=== PATIENT | male | born 1955 | race Caucasian/White ===

== ENCOUNTER → 2018-02-27 13:22 | Outpatient (CLI) | payer BC, SELFPAY ==
--- NOTE | 2018-02-27 13:30 | CT_ITS ---
EXAM: CT LUNG LOW DOSE WO CONTRAST COMPARISON: None HISTORY: 62-year-old male with 54 pack-year smoking history asymptomatic ORDERING PHYSICIAN: Marcelino Ortega MD PATIENT AGE: 62 years TECHNIQUE: The exam was performed on a GE Light Speed [address] scanner using 2.90 mGy CTDI. A low dose helical CT CHEST was performed on a multi-detector scanner. All CT scans at the facility use one or more dose reduction, viz: automated exposure control; ma/kV adjustment per patient size (including targeted exams where dose is matched to indication; i.e. head); or iterative reconstruction technique. The LDCT was performed in a facility that meets the criteria for the screening program. Data regarding this exam was submitted to ACR which is an approved registry. The order for this exam indicates that it came as a result of a lung cancer screening counseling shard decision-making visit that included all the elements required of such a visit including smoking cessation. The radiologist interpreting this exam meets the CMS criteria for the LDCT lung cancer screening program. The exam is reported using the Lung-RADS classification scale and reported to the ACR registry. NOTE: This study was performed for the specific purposes of lung cancer screening and is not an alternative to diagnostic chest CT. RADIATION DOSE: CTDI vol(CT dose Index-volume) = 2.90mG DLP (Dose Length Product) = 106.81 mGcm FINDINGS: Moderate centrilobular emphysematous changes are present with hyperinflation and bronchial thickening consistent with obstructive chronic bronchitis. Calcified granuloma right middle lobe. No suspicious nodules infiltrates or effusions. There are coronary artery calcifications. Scattered isodense lesions of the liver are present the largest at 2.6 cm consistent with hepatic cysts. IMPRESSION: 1. Lung RADS Category: 2, benign 2. Other findings: Centrilobular emphysema/COPD. Coronary artery calcifications suggesting coronary artery disease RECOMMENDATIONS: 12 month LDCT follow-up
== END ==
PROVIDERS: Family Provider Family Medicine; PCP Family Medicine; Visit Provider Family Medicine
DX: Z87.891 Personal history of nicotine dependence (principal); Z12.2 Encounter for screening for malignant neoplasm of respiratory organs

== ENCOUNTER → 2019-03-05 13:57 | Outpatient (CLI) | payer MEDICARE, SELFPAY ==
--- NOTE | 2019-03-05 14:06 | CT_ITS ---
CT lung screening EXAM: CT LUNG LOW DOSE WO CONTRAST HISTORY: 50 pack-year smoking history, asymptomatic for lung cancer ITS.REASON: H/O NICOTINE DEPENDENCE ORDERING PHYSICIAN: Marcelino Ortega MD PATIENT AGE: 63 years COMPARISON: None TECHNIQUE: The exam was performed on a GE Light Speed [address] scanner using 2.90 mGy CTDI. A low dose helical CT CHEST was performed on a multi-detector scanner. All CT scans at the facility use one or more dose reduction, viz: automated exposure control, ma/kV adjustment per patient size (including targeted exams where dose is matched to indication, i.e. head), or iterative reconstruction technique. The LDCT was performed in a facility that meets the criteria for the screening program. Data regarding this exam was submitted to ACR which is an approved registry. The order for this exam indicates that it came as a result of a lung cancer screening counseling shard decision-making visit that included all the elements required of such a visit including smoking cessation. The radiologist interpreting this exam meets the CMS criteria for the LDCT lung cancer screening program. The exam is reported using the Lung-RADS classification scale and reported to the ACR registry. NOTE: This study was performed for the specific purposes of lung cancer screening and is not an alternative to diagnostic chest CT. RADIATION DOSE: CTDI vol(CT dose Index-volume) = 2.90mG DLP (Dose Length Product) = 115.16 mGcm FINDINGS: Centrilobular emphysema. No suspicious nodules. Small nodes are present in the mediastinum. Calcified granuloma right middle lobe. There are coronary artery calcifications. Scattered hypodense areas are present in the liver may be due to cysts IMPRESSION: 1. Lung RADS Category: 2, benign 2. Other findings: Centrilobular emphysema, coronary artery disease RECOMMENDATIONS: 12 month LDCT follow-up
== END ==
PROVIDERS: PCP Family Medicine; Visit Provider Family Medicine
DX: Z12.2 Encounter for screening for malignant neoplasm of respiratory organs (principal); Z87.891 Personal history of nicotine dependence

== ENCOUNTER → 2020-09-06 15:03 | Outpatient (POV) | payer MEDICARE, OTHER, SELFPAY | PROVIDERS: Visit Provider Dermatology | DX: Z00.00 Encounter for general adult medical examination without abnormal findings (principal) ==

== ENCOUNTER → 2020-09-20 13:58 | Outpatient (POV) | payer MEDICARE, OTHER, SELFPAY | PROVIDERS: Visit Provider Dermatology | DX: Z00.00 Encounter for general adult medical examination without abnormal findings (principal) ==

== ENCOUNTER → 2021-09-12 12:06 | Outpatient (CLI) | payer MEDICARE, OTHER, SELFPAY | PROVIDERS: Visit Provider Surgery | DX: Z01.812 Encounter for preprocedural laboratory examination (principal); Z11.52 Encounter for screening for COVID-19; Z12.11 Encounter for screening for malignant neoplasm of colon | CPT/HCPCS: C9803; U0003; U0005 ==

== ENCOUNTER 2021-09-14 09:55 | Day surgery (SDC) | payer MEDICARE, OTHER, SELFPAY ==
[2021-09-11 12:44] VITALS: BMI 27.1
[2021-09-14] VITALS (9 sets, daily range): BP systolic 88–154; BP diastolic 58–84; PULSE 57–67; RESP 18; TEMP 36.1–36.3; O2SAT 93–97
--- NOTE | 2021-09-14 11:05 | HMH.SCOPE ---
- Procedure: Date: 09/14/21 Patient Date of :: 1955 Procedure Performed:: Colonoscopy with polypectomy Indications:: History of polyps. Colonoscopy in March [address] Martinez revealed the followin polyps in the ascending colon 4 polyps in the transverse colon 3 polyps in the descending colon 1 polyp in the sigmoid colon Left-sided diverticulosis Grade 1 internal hemorrhoids Performing Provider:: Fili Salguero MD Referring Provider:: . Sedation:: Monitored anesthesia care Procedure:: After informed consent was obtained the patient was taken to the endoscopy suite. Sedation ensued after the patient was transferred to the left lateral decubitus position. Pulse, blood pressure, and oxygen saturation were monitored throughout the procedure. Digital rectal exam revealed no significant abnormality. The colonoscope was placed in position. The entire colon was evaluated. The colonoscope was carefully removed and the patient was transferred to recovery in stable condition. Please see findings and specimens below for detail. Findings:: Bowel preparation moderate Profound spasticity/lack of relaxation Moderate tortuosity throughout with severe sigmoid tortuosity Scattered diverticulosis (mostly left-sided) Multiple complex polyps (see specimens) Specimens:: Lobulated cecal polyp (cold snare) Lobulated proximal right colon polyp (cold snare) Right colon polyp (cold snare) Complex/lobulated hepatic flexure polyps x5 (cold snare) Recommendations:: Timing of repeat colonoscopy is pending pathology but will likely be between 1-2 years secondary to history of multiple complex polyps noted on colonoscopy in 2019 and additional multiple complex polyps noted on this evaluation. Short-term repeat evaluation also warranted secondary to limitations in visualization due to spasticity/lack of relaxation/tortuosity/moderate bowel prep. Complications:: No immediate. Flat/upright abdominal films pending secondary to need for excision of multiple large complex polyps and overall difficulty in maneuvering secondary to spasticity/lack of relaxation/tortuosity. Estimated blood obtained (mL): 1
--- NOTE | 2021-09-14 13:19 | P.PN_ITS ---
[facility] Anesthesia Checklist - Patient Identification Patient Identification: Arm Band, Verbal (Name & ) - Structural Data Admitted From: Home Planned Operative Procedure/s: Colonoscopy Consent for Planned Operative Procedure(s) Verified: Yes Verified Documents: Surgical Consent - NPO Status Verified Time NPO: 00:00 - Additional verifications Anesthesia Reactions: No Hx Blood Transfusions: No Blood Transfusion Reaction: No - Cardiovascular Assessment Heart Sounds: S1 & S2 - Airway Assessment C-Spine Mobility Assessed: Yes TMJ Mobility Assessed: Yes Dentition: Dentures-good fit - Neurological Assessment Level of Consciousness: Awake, Alert, Appropriate - Anesthesia Plan Anesthesia Risk discussed: Yes ASA Class: II Anesthesia Type: General [facility] History I have reviewed the patient's past medical history: Yes Medical History: Reports:: Hyperlipidemia, Lung Disease (copd) Denies:: Cancer, Diabetes Mellitus Type 1, Diabetes Mellitus Type 2, Internal Pacemaker, MRSA, Seizures *Have you ever received a pneumonia vaccine?: Yes *Have you received a flu vaccine this season?: Yes Other Medical History: Denies: Blood Transfusion Reaction Anesthesia experience/problems:: no issues Laterality Cases: Bilateral: Tonsillectomy Other Surgeries: No: Pacemaker Amputation: No Fractures: No - *Social History Last grade of school completed: High school graduate Smoking Status: Current every day smoker Tobacco Type: cigarettes # Packs/Day (cigarettes): 1 Alcohol Intake: current Alcohol Intake Frequency:: a few times a month Substance Use Type: marijuana *Occupational Status:: retired *Travel in the last 8 weeks: None Family Hx:: No significant family history
--- NOTE | 2021-09-14 14:15 | XR_ITS ---
PROCEDURE: XR ACUTE ABDOMEN SERIES CLINICAL INDICATION: post-colonoscopy pain COMPARISON: CT LUNGSCREEN CT lung screening from 03/05/2019 FINDINGS: Radiograph of the chest demonstrates no definite pneumothorax, although it is not clear whether this radiograph was obtained upright. If it is a supine radiograph than pneumothorax cannot be entirely excluded. There is no pleural fluid and no large pulmonary masses. No pulmonary edema. Extrathoracic visualized soft tissues appear unremarkable. Abdominal radiograph upright demonstrates a tiny linear lucency in the right upper quadrant, which could represent a tiny amount of free intraperitoneal air. There is a right upper quadrant clips presumably post cholecystectomy. There is osseous degenerative change. 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 No dilated bowel loops are visualized. IMPRESSION: 1. No large pneumothorax, although it is it is not clear whether upright chest radiograph was obtained. 2. Tiny linear lucency in right upper quadrant on upright abdominal radiograph, which could represent a tiny amount of free intraperitoneal air. Dictated by: Harmony Blount MD 09/14/2021 14:50 Harmony Blount MD in [facility] 09/14/2021 14:50
--- NOTE | 2021-09-14 14:20 | SUR.PHASEII ---
Pt to radiology
--- NOTE | 2021-09-14 14:39 | SUR.PHASEII ---
return from radiology.
--- NOTE | 2021-09-14 14:56 | SUR.PHASEII ---
Xray results back, impression: possibility in RUQ for a tiny amount of free air. Dr Salguero notified. Waiting for response.
--- NOTE | 2021-09-14 14:59 | SUR.PHASEII ---
Dr. Salguero says send pt home and have pt return tomorrow for another flat and upright. instructed pt of this and he verbalized understanding.
--- NOTE | 2021-09-14 15:05 | SUR.PHASEII ---
repeated discharge instructions and to come to ER if develops abdominal pain or vominting blood, verbalized understanding.
== END 2021-09-14 15:05 | disposition home or self-care (01) ==
LOC: OUTP 09:57
PROVIDERS: PCP Family Medicine; Visit Provider Surgery
PROC: 0DJD8ZZ Inspection of Lower Intestinal Tract, Via Natural or Artificial Opening Endoscopic (ICD-10-PCS; principal; 2021-09-14 11:00)
DX: Z12.11 Encounter for screening for malignant neoplasm of colon (principal); K63.5 Polyp of colon; K58.9 Irritable bowel syndrome, unspecified; K56.2 Volvulus; K57.32 Diverticulitis of large intestine without perforation or abscess without bleeding; Z86.010 Personal history of colon polyps; E78.5 Hyperlipidemia, unspecified; J44.9 Chronic obstructive pulmonary disease, unspecified; F12.90 Cannabis use, unspecified, uncomplicated; Z72.0 Tobacco use
CPT/HCPCS: 45385; 74021; 88305; J2704

== ENCOUNTER → 2021-09-15 13:09 | Outpatient (CLI) | payer MEDICARE, OTHER, SELFPAY ==
--- NOTE | 2021-09-15 13:17 | XR_ITS ---
PROCEDURE: XR ABDOMEN MIN 2V CLINICAL INDICATION: POST COLONOSCOPY COMPARISON: No exams were available for comparison FINDINGS: There is scattered gas and stool in the ascending colon, hepatic flexure and splenic flexure. Minimal small bowel gas seen in the left side of the abdomen. There is no evidence of free air. There are no abnormal soft tissue shadows. IMPRESSION: Mildly abnormal non-specific bowel gas pattern Dictated by: Dr. Nehemias Guerrero MD 09/15/2021 15:21 Dr. Nehemias Guerrero MD in [facility] 09/15/2021 15:21
== END ==
PROVIDERS: PCP Family Medicine; Visit Provider Surgery
DX: Z86.010 Personal history of colon polyps (principal)
CPT/HCPCS: 74019

== ENCOUNTER → 2022-02-12 13:11 | Outpatient (CLI) | payer MEDICARE, OTHER, SELFPAY ==
--- NOTE | 2022-02-12 13:21 | CT_ITS ---
FINAL REPORT CLINICAL HISTORY: SCREENING FOR LUNG CANCER, NICOTINE INDEPENDENCE smoker, 1ppd x 50 years, copd COMPARISON: March 05, 2019 FINDINGS: Low-Dose Chest CT CTDI vol (mGy): 2.90 DLP (mGy-cm): 108.64 Axial images were obtained from the lung apex to the mid abdomen by computed tomography. Low-dose protocol was utilized. FINDINGS: CHEST: There is no axillary adenopathy. There is no hilar or mediastinal adenopathy. There is several small mediastinal lymph nodes. The heart is proper size. There is no pericardial or pleural effusion. Limited images of the upper abdomen demonstrate multiple hepatic cysts. There are postoperative changes from cholecystectomy. Lung window images demonstrate moderate emphysema. There is mild scarring. There is a calcified granuloma in the right middle lobe. No new nodule or mass is identified. IMPRESSION: Lung RADS category 1. Recommend 12 month follow-up low-dose chest CT. Reviewed, Interpreted and Dictated by Sal Vines III, MD Transcribed by Nancy Gonzalez Authenticated by Sal Vines III, MD on 02/12/2022 02:59:27 PM [facility]
== END ==
PROVIDERS: PCP Family Medicine; Visit Provider Family Medicine
DX: Z87.891 Personal history of nicotine dependence (principal); Z12.2 Encounter for screening for malignant neoplasm of respiratory organs
CPT/HCPCS: 71271

== ENCOUNTER → 2022-08-28 08:55 | Outpatient (POV) | payer MEDICARE, OTHER, SELFPAY | PROVIDERS: Visit Provider Dermatology | DX: Z00.00 Encounter for general adult medical examination without abnormal findings (principal) ==

== ENCOUNTER → 2022-10-02 13:13 | Outpatient (POV) | payer MEDICARE, OTHER, SELFPAY | PROVIDERS: Visit Provider Dermatology | DX: Z00.00 Encounter for general adult medical examination without abnormal findings (principal) ==

== ENCOUNTER → 2023-08-23 07:22 | Outpatient (CLI) | payer MEDICARE, OTHER, SELFPAY ==
--- NOTE | 2023-08-23 07:29 | CT_ITS ---
FINAL REPORT CLINICAL HISTORY: H/O NICOTINE DEPENDENCE smoker,1.5 ppd x 54 years. copd COMPARISON: 02/12/2022 FINDINGS: Axial images were obtained from the lung apex to the mid abdomen by computed tomography. Low-dose protocol was utilized. CTDl vol(mGy): 2.90 DLP (mGy-cm): 108.90 FINDINGS: There is no axillary adenopathy. There is no hilar or mediastinal adenopathy. Multiple borderline sized lymph nodes are present. There are moderate to severe coronary artery calcifications. The heart size is normal. There is no pericardial or pleural effusion. Lung window images demonstrate no suspicious infiltrate or nodule. There is mild scarring. There is a calcified granuloma in the right midlung. Limited images of the upper abdomen demonstrate multiple, presumed, hepatic cysts. The patient is status postcholecystectomy. IMPRESSION: Lung RADS category 1. Recommend 12 month follow-up low-dose chest CT. Reviewed, Interpreted and Dictated by Sal Vines III, MD Transcribed by Dori Clark Authenticated and [facility]
== END ==
PROVIDERS: PCP Family Medicine; Visit Provider Family Medicine
DX: Z87.891 Personal history of nicotine dependence (principal); Z12.2 Encounter for screening for malignant neoplasm of respiratory organs
CPT/HCPCS: 71271

== ENCOUNTER 2024-08-21 07:14 | Outpatient (CLI) | payer MEDICARE, SELFPAY ==
--- NOTE | 2024-08-21 07:20 | CT_ITS ---
FINAL REPORT TECHNIQUE: Axial images were obtained from the lung apex to the mid abdomen by computed tomography. This study was performed with techniques to keep radiation doses as low as reasonably achievable (ALARA). Individualized dose reduction techniques using automated exposure control or adjustment of mA and/or kV according to the patient's size were employed. CLINICAL HISTORY: SCREENING, current smoker, 1ppd 55 years COMPARISON: 08/23/2023 FINDINGS: CHEST CT LOW DOSE CTDI vol (mGy): 2.90 DLP (mGy-cm): 111.77 There is no axillary adenopathy. There is no hilar or mediastinal adenopathy. There is moderate coronary artery calcification. The heart is normal in size. There is no pericardial or pleural effusion. There are advanced changes of centrilobular emphysema. No suspicious mass or nodule is identified. Limited images of the upper abdomen demonstrate a benign-appearing cyst in the liver measuring to 4.6 cm in diameter. The gallbladder is surgically absent. IMPRESSION: Advanced changes of centrilobular emphysema. Benign cyst in the liver. Lung RADS category 1S. Recommend 12 month follow-up low-dose chest CT. Reviewed, Interpreted and Dictated by Rad Blount MD Transcribed by Odilia Cordon Authenticated and [facility]
== END 2024-08-21 23:59 | disposition home or self-care (01) ==
LOC: RAD 07:16
PROVIDERS: PCP Family Medicine; Visit Provider Family Medicine
DX: Z87.891 Personal history of nicotine dependence (principal)
CPT/HCPCS: 71271

== ENCOUNTER 2024-11-20 15:41 | Observation (INO) | payer MEDICARE, SELFPAY ==
--- NOTE | 2024-11-20 15:50 | CT_ITS ---
FINAL REPORT TECHNIQUE: Thin-section axial CT with IV contrast supplemented with multi planar reconstruction under CT angiogram protocol was performed of the neck. This study was performed technique to keep radiation doses as low as reasonably achievable, (ALARA). NASCET criteria was utilized during interpretation. CLINICAL HISTORY: R sided UE and LE lexkness 12h, stroke alert COMPARISON: None FINDINGS: Aortic arch: Arch shows no significant narrowing. Great vessel origins are widely patent. Right carotid: No significant stenosis is seen at the cervical common or internal carotid artery. This is considered 0% stenosis by NASCET criteria. Left carotid: No significant stenosis is seen at the cervical common or internal carotid artery. A small amount of calcified plaque is noted in the left carotid bulb, however no significant stenosis is identified, consistent with 0% stenosis by NASCET criteria. Vertebrals: No significant stenosis is present. IMPRESSION: No evidence of significant stenosis or major branch occlusion. Reviewed, Interpreted and Dictated by Jewels Robert MD Transcribed by Nayely Godoy Authenticated and [facility]
--- NOTE | 2024-11-20 15:50 | CT_ITS ---
FINAL REPORT TECHNIQUE: Thin section axial images are obtained through the brain after intravenous contrast injection. Multiplanar reconstructions were obtained from the axial data. Exam was performed using dose reduction technique per the ALARA principal. CLINICAL HISTORY: R sided UE and LE lexkness 12h, stroke alert COMPARISON: None FINDINGS: The intracerebral portions of the carotid arteries are patent. The anterior and middle cerebral arteries are patent. The basilar artery is patent. The posterior cerebral arteries arise from the basilar artery. [place] is intact. There is no significant stenosis, aneurysm, or AVM. IMPRESSION: Unremarkable CT angiogram of the intracerebral vasculature. Reviewed, Interpreted and Dictated by Jewels Robert MD Transcribed by Nayely Godoy Authenticated and [facility]
--- NOTE | 2024-11-20 15:50 | XR_ITS ---
FINAL REPORT CLINICAL HISTORY: stroke like symptoms COMPARISON: None FINDINGS: A portable view of the chest was obtained. Cardiac and mediastinal silhouettes are within normal limits. There are mild increased interstitial markings bilaterally, likely chronic. There is no pleural effusion or pneumothorax. IMPRESSION: No acute process on this portable exam. Reviewed, Interpreted and Dictated by Jewels Robert MD Transcribed by Nayely Godoy Authenticated and [facility]
--- NOTE | 2024-11-20 15:50 | CT_ITS ---
FINAL REPORT TECHNIQUE: Thin section axial images were obtained from skull base to vertex without contrast. Coronal reconstruction images were obtained from the axial data. Exam was performed using dose reduction technique. CLINICAL HISTORY: R sided UE and LE weskness 12h, stroke alert COMPARISON: None FINDINGS: There is age-appropriate atrophy. There is no mass effect or midline shift. There is no intracranial hemorrhage. There is no hydrocephalus. Periventricular low density is likely related to changes of chronic small vessel ischemia. There is a chronic appearing left basal ganglia low-density that likely represents a possible chronic lacunar infarct. There is also a smaller low-density in the right caudate, that likely also represents a chronic lacunar infarct. The basilar cisterns are preserved. The posterior fossa is without acute abnormality. The soft tissues are without acute abnormality. There is mucoperiosteal thickening in the maxillary sinuses bilaterally, with frothy debris in the right maxillary sinus. No acute osseous abnormality is identified. IMPRESSION: No acute intracranial abnormality. Atrophy and changes suggesting chronic small vessel ischemia. There are small low densities in the right caudate and left basal ganglia that likely represent small chronic lacunar infarcts. Reviewed, Interpreted and Dictated by Jewels Robert MD Transcribed by Nayely Godoy Authenticated and [facility]
--- NOTE | 2024-11-20 15:52 | ECG_ITS ---
APPROVED REPORT Exam: Resting ECG HR:58 bpm ECG Measurements Heart Rate 58 AXES GA 162 P 46 QRSd 83 QRS 37 QT 423 T 35 QTc 419 Conclusion SINUS BRADYCARDIA MINIMAL ST DEPRESSION [0.025+ mV ST DEPRESSION] BORDERLINE ECG UNCONFIRMED REPORT Electronically signed by : KYA VINES, 11/22/2024 02:36:45
[2024-11-20 15:54] VITALS: BP 181/93; PULSE 59; RESP 20; TEMP 36.7; O2SAT 99; BMI 26.4
[2024-11-20] MEDS: SODIUM CHLORIDE 0.9% 10ML SYR (RAD ONLY) 10 ML IV (16:04)
[2024-11-20] MEDS: 0.9 % SODIUM CHLORIDE 50 ML VIAL IV (16:05)
[2024-11-20] MEDS: IOPAMIDOL-370 (76%);100ML BOTTLE 80 ML IV (16:05)
[2024-11-20 16:06] LABS: Basophils # 0.1 K/mm3 (0-0.2); Basophils % 1.1 % (0.1-2.0); Eosinophils # 0.1 K/mm3 (0.0-0.4); Eosinophils % 1.6 % (0.1-12.0); Hematocrit 49.3 % (42.0-52.0); Hemoglobin 16.7 g/dL (14.1-18.0); Lymphocytes # 1.8 K/mm3 (0.7-4.5); Lymphocytes % 32.3 % (10-50); Mean Corpuscular HGB Conc 33.9 g/dL (31.8-35.4); Mean Corpuscular Hemoglobin 30.8 pg (27.0-31.2); Mean Platelet Volume 10.2 fl (7.4-10.4); Monocytes # 0.4 K/mm3 (0.1-1.0); Monocytes % 7.2 % (1.7-9.3); Neutrophils # 3.3 K/mm3 (1.8-7.8); Neutrophils % 57.6 % (37.0-80.0); Platelet Count 198 K/mm3 (142-424); Red Blood Count 5.42 M/mm3 (4.60-6.20); Red Cell Distribution Width 12.4 % (11.5-17.5); White Blood Count 5.7 K/mm3 (4.8-10.8)
[2024-11-20 16:15] VITALS: BP 162/90; PULSE 60; O2SAT 98
[2024-11-20 16:17] LABS: Alanine Aminotransferase 22 U/L (12-78); Albumin Level 4.4 g/dl (3.5-5.0); Albumin/Globulin Ratio 1.6 (1.1-1.8); Alkaline Phosphatase 67 U/L (38-126); Aspartate Amino Transferase 28 U/L (17-59); Bilirubin,Total 0.9 mg/dl (0.2-1.3); Blood Urea Nitrogen 8 mg/dl (9-20); Calcium 9.7 mg/dl (8.4-10.2); Carbon Dioxide 26 mmol/L (22.0-30.0); Chloride 104 mmol/L (98-107); Cholesterol 229 mg/dl (140-200); Creatinine Clearance Estimated 80 mL/min (50-200); Estimated Glomerular Filt Rate 95 ml/min (>60); GFR (African American) 115 ML/MIN (>60); Globulin 2.8 g/dL (1.3-3.2); Glucose 102 mg/dl (74-100); HDL Cholesterol 46 mg/dl (40-60); Lipase 57 U/L (23-300); Sodium 138 mmol/L (136-145); Total Protein,Serum 7.2 g/dl (6.3-8.2); Triglycerides 131 mg/dl (30-150); VLDL Cholesterol 26 mg/dL (0-40)
--- NOTE | 2024-11-20 16:18 | HMH.EDGENADL ---
Discharge Plan Disposition Patient Disposition: Admitted Chief Complaint: Neuro Symptoms/Deficit Clinical Impressions Clinical Impression: Acute right-sided muscle weakness Discharge ED Provider: Tito Astorga General Adult HPI General Chief complaint: Neuro Symptoms/Deficit Stated complaint: poss. stroke Time Seen by Provider: 11/20/24 15:50 Mode of Arrival: Ambulatory Source of Information: Patient Limitations: No Limitations Description of Symptoms (Recalled from ER Triage Doc. by RN): pt to ed c/o stroke like symptoms. pt LKN: 2300 yesterday. reports he was playing dominos, became cold, started having left sided weakness and had a fall today. History of Present Illness HPI narrative: Please note that above description of symptoms, in this electronic medical record under categorization of recalled from ER triage doctor by RN are reflective of an initial nursing assessment, however, is not reflective of my full history and physical exam that was personally taken and clarified. Consequentially, this preceding description of symptoms, which may include the patient's categorized chief complaint in the EMR, do not reflect my personal clinical impression, and the ultimate description of history of present illness and patient stated complaints should be deferred to this section of the note. Unless stated otherwise or congruent with this section of the note, additional signs, symptoms, or incongruence should be interpreted as inaccurate with my clinical impression. Related Data Home Medications ?Medication ?Instructions ?Recorded ?Confirmed albuterol sulfate 90 mcg/actuation 2 puffs IH DAILY COPD 03/17/19 09/20/21 aerosol inhaler fluoxetine 90 mg capsule,delayed 90 mg PO DAILY Depression 03/17/19 09/20/21 release fluticasone propionate 220 12 gm IH DAILY COPD 03/17/19 09/20/21 mcg/actuation HFA aerosol inhaler atorvastatin 10 mg tablet 10 mg PO HS Cholesterol 09/11/21 09/20/21 Allergies Allergy/AdvReac Type Severity Reaction Status Date / Time Penicillins Allergy Verified 09/20/21 14:58 [facility] Disclaimer: The information contained in this section may have been updated after the patient was seen, as this information can be updated by other users. Social History Smoking Status: Current every day smoker tobacco type: cigarettes packs per day: 1 alcohol intake: current alcohol intake frequency: a few times a month substance use type: marijuana current occupational status: retired Travel in the last 8 weeks: None caffeine: Yes Have you lived/traveled outside [place] in past 30 days?: No Contact w/someone who lives/traveled outside [place] past 30 days?: No Exposure to someone with infectious disease in past 14 days?: No Do you have a fever (greater than 100.4 F or 38 C)?: No Have you tested positive for COVID-19: No Exposed to someone with COVID-19 in past 14 days?: No Do you have a sore throat?: No Do you have a cough?: No Do you have any weakness?: No Do you have any diarrhea?: No Are you experiencing any unusual bleeding?: No Do you have any muscle aches/pain?: No Do you have any abdominal pain?: No Are you experiencing loss of taste or smell?: No Other Medical History Have you received the Flu Vaccine for this season: Yes Have you received the Pneumonia Vaccine: Yes ROS Obtained: Yes All systems reviewed & no additional complaints except as documented Physical Exam General General appearance: alert and in no apparent distress Head Head exam: atraumatic and normocephalic Eye Eye exam: Present normal appearance, PERRL and EOMI Neck Neck exam: Present normal inspection, full ROM and trachea midline Respiratory Respiratory exam: Present normal lung sounds bilaterally; Absent respiratory distress, wheezes, stridor, accessory muscle use or prolonged expiratory phase Cardiovascular Cardiovascular exam: Present regular rate, normal rhythm and other (Pulses equal symmetric in upper and lower extremities) Abdominal Exam Abdominal exam: Present soft; Absent distention, tenderness or pulsatile mass Extremities Exam Extremities exam: Absent edema Neurological Exam Neurological exam: Present alert, oriented X3, CN II-XII intact and motor sensory deficit (Weakness and after right upper and right lower extremity with 4 out of 5 strength. Dysmetria right upper extremity. NIHSS 3) Skin Skin exam: Present warm and dry; Absent diaphoresis or erythema Medical Decision Making Medical Records Medical records reviewed: Yes I reviewed the patient's medical records. Screening: Per USPSTF and CDC recommendations, given the prevalence of disease in our region, it is our hospital?s policy to screen for HIV and viral Hepatitis for all patients aged 18 and over and those with ongoing risk factors. Coleman Inquiry Pt receiving controlled substance: No Coleman was queried for this patient: No Vital Signs: 11/20/24 15:54 11/20/24 16:15 Temperature 98.1 F Temperature Source Oral Pulse Rate 60 Pulse Rate [Left Radial] 59 L Respiratory Rate 20 Blood Pressure 162/90 H Blood Pressure [Right Arm] 181/93 H Blood Pressure Mean 114 Blood Pressure Mean [Right Arm] 122 02 Sat by Pulse Oximetry 99 98 Oxygen Delivery Method Room Air Room Air Lab Data Lab Results 11/20/24 16:00: WBC 5.7, RBC 5.42, Hgb 16.7, Hct 49.3, MCV 91.0, MCH 30.8, MCHC 33.9, RDW 12.4, Plt Count 198, MPV 10.2, Neut % (Auto) 57.6, Lymph % (Auto) 32.3, Jack % (Auto) 7.2, Eos % (Auto) 1.6, Baso % (Auto) 1.1, Neut # (Auto) 3.3, Lymph # (Auto) 1.8, Jack # (Auto) 0.4, Eos # (Auto) 0.1, Baso # (Auto) 0.1, Sodium 138, Potassium 7.5 H*, Chloride 104, Carbon Dioxide 26, Anion Gap 15.5 H, BUN 8 L, Creatinine 0.80, Estimated Creat Clear 80, Estimated GFR 95, Est GFR ( Amer) 115, Glucose 102 H, Hemoglobin A1c 5.2, Calcium 9.7, Total Bilirubin 0.9, AST 28, ALT 22, Alkaline Phosphatase 67, Troponin I < 0.01, NT-Pro-B Natriuret Pep 112, Total Protein 7.2, Albumin 4.4, Globulin 2.8, Albumin/Globulin Ratio 1.6, Triglycerides 131, Cholesterol 229 H, LDL Cholesterol Direct 147.99 H, VLDL Cholesterol 26, HDL Cholesterol 46, Cholesterol/HDL Ratio 5.0 H, Lipase 57 11/20/24 16:30: Potassium 4.1 D 11/20/24 16:00 11/20/24 16:30 Orders (Tests/Meds): ED MEDICATIONS Generic Name Dose Route Start Last Admin Trade Name Freq PRN Reason Stop Dose Admin Calcium Gluconate/Sodium Chloride 2 gm in 100 mls @ 50 mls/hr 11/20/24 16:29 11/20/24 17:25 Calcium Gluconate 2,000mg/100ml Nacl Premix IV 11/20/24 18:28 Not Given ONCE ONE Discontinued Medications Generic Name Dose Route Start Last Admin Trade Name Freq PRN Reason Stop Dose Admin Aspirin 324 mg 11/20/24 15:50 11/20/24 16:30 Aspirin 81mg Chewable Tablet PO 11/20/24 15:51 324 mg ONCE ONE Administration Dextrose 50 ml 11/20/24 16:29 11/20/24 17:25 Dextrose 50% 50ml Syringe (Crash Cart) IVP 11/20/24 16:30 Not Given ONCE ONE Lactated Ringer's 1,000 mls @ 999 mls/hr 11/20/24 15:50 11/20/24 16:30 Lactated Ringer's 1000 Ml Bag IV 11/20/24 16:50 999 mls/hr .Q1H1M ONE Administration Insulin Human Regular 10 unit 11/20/24 16:29 11/20/24 17:25 Insulin Human Regular 100 Units/Ml 10ml Vial IV 11/20/24 16:30 Not Given ONCE ONE Iopamidol 80 ml 11/20/24 16:03 11/20/24 16:05 Iopamidol-370 (76%);100ml Bottle IV 11/20/24 16:04 80 ml ONCE ONE Administration Lisinopril 5 mg 11/20/24 17:17 Lisinopril 5mg Tablet PO 11/20/24 17:18 ONCE ONE Sodium Chloride 10 ml 11/20/24 16:03 11/20/24 16:04 Sodium Chloride 0.9% 10ml Syr (Rad Only) IV 11/20/24 16:04 10 ml ONCE ONE Administration Sodium Chloride 50 ml 11/20/24 16:03 11/20/24 16:05 0.9 % Sodium Chloride 50 Ml Vial IV 11/20/24 16:04 50 ml ONCE ONE Administration Sodium Zirconium Cyclosilicate 10 gm 11/20/24 16:29 11/20/24 17:25 Lokelma 5gm Packet PO 11/20/24 16:30 Not Given ONCE ONE ORDERS Category Date Time Status CT angio head Stat Cat Scan 11/20/24 15:[address] angio neck Stat Cat Scan 11/20/24 15:[address] head/brain wo con Stat Cat Scan 11/20/24 15:50 Completed CXR --portable [XR chest portable] Stat Exams 11/20/24 15:50 Completed CBC w/Auto Diff [Complete Blood Count Auto Diff] Stat Lab 11/20/24 16:00 Completed CMP [Comprehensive Metabolic Panel] Stat Lab 11/20/24 16:00 Completed Hemoglobin A1C Stat Lab 11/20/24 16:00 Completed Lipase Stat Lab 11/20/24 16:00 Completed Lipid Panel Stat Lab 11/20/24 16:00 Completed NT Pro Brain Natriuretic Pep. Stat Lab 11/20/24 16:00 Completed Potassium Stat Lab 11/20/24 16:30 Completed Trop I [Troponin I] Stat Lab 11/20/24 16:00 Completed Troponin I Q3H Lab 11/20/24 19:00 Ordered Troponin I Q3H Lab 11/20/24 22:00 Ordered CA echo doppler complete AM Y 11/21/24 07:00 Ordered Medical Decision Narrative: 69-year-old male history of COPD and tobacco use disorder still currently smoking 1.5 packs/day and has been doing so for nearly 60 years presenting with right-sided weakness. Patient states that he has intermittently had weakness on the right side over the past couple of months, but last night, 1/2 in the PM noticed that his right upper extremity was heavy and weak as well as his right lower extremity. States that he was having difficulty picking his right lower extremity off the floor when he was walking and has fallen toward his right lower extremity a couple of times. Has not hit his head. No anticoagulation. No chest pain, nausea, vomiting, left-sided deficits, speech deficits, vision changes, or any other concerns. Never had anything like this in the past. History was obtained via conversation with patient. On arrival, patient hemodynamically stable, alert, oriented x4, appropriate, GCS 15, moving all extremities spontaneously, pupils equal and reactive to light. Full physical exam performed and significant for Weakness and after right upper and right lower extremity with 4 out of 5 strength. Dysmetria right upper extremity. NIHSS 3. Cardiopulmonary exam normal. Cranial nerves intact and symmetric. Differential includes hemorrhagic CVA, embolic CVA, critical cervical or intracranial stenosis, intracranial mass, TIA, among others. Patient placed on continuous cardiac monitoring and continuous pulse ox with initial blood pressure 191/93, heart rate 59, saturation 99% on room air. Independent interpretation of EKG shows sinus bradycardia 58 bpm. AL 162, QRS 83, QTc 419. No acute ischemic change. Normal axis. Patient was given full dose aspirin 324 mg for symptomatic management and correction of underlying abnormalities. Workup independently interpreted and significant for no acute intracranial hemorrhage on CT head. Labs independently interpreted with nonactionable chemistry other than significantly elevated potassium greater than 7. I feel this is likely a lab error given normal kidney function and otherwise normal labs. Insulin, dextrose, calcium gluconate were ordered, but held prior to repeat potassium being drawn given no clinical symptoms and no EKG changes. Repeat potassium 4.1. Hyperkalemic protocol was canceled. Nonactionable lipid panel. CBC normal. On independent interpretation of angiograms, no acute intracranial hemorrhage. Patient does have chronic findings in the deep matter of his brain. See radiology read for full review of final results. Heart score 3. On reevaluation, patient still symptomatic with NIHSS 3. I feel this is likely sales development representative of TIA versus basal ganglia stroke. Patient's primary care provider team was contacted and case was discussed for admission. Recommended lisinopril for pressures and admission. Formal echo was also ordered for the morning. MR head was also ordered. Given patient presentation, workup, history, this most likely represents strokelike symptoms. Because patient high risk for clinical decompensation, deemed appropriate for inpatient admission. Results were relayed to patient who voiced understanding and patient was agreeable to inpatient admission and management. Patient was admitted to the hospital for further definitive management. Employee Development Manager disclaimer Much of this encounter note is an electronic nail polish brush machine feeder spoken language to printed text. Electronic nail polish brush machine feeder of the spoken language may permit errors. Although I have reviewed the note, some errors may still exist. Critical Care Critical Care Time Critical Care Time: No
[2024-11-20 16:20] LABS: Anion Gap 15.5 mEq/L (5-15)
[2024-11-20 16:26] LABS: Potassium 7.5 mmoL/L (3.5-5.1)
[2024-11-20 16:28] LABS: Direct LDL Cholesterol 147.99 mg/dL (100-129)
[2024-11-20] MEDS: ASPIRIN 81MG CHEWABLE TABLET 324 MG PO (16:30)
[2024-11-20] MEDS: LACTATED RINGERS 1000ML 1,000 ML 999 ML IV (16:30)
[2024-11-20 16:37] LABS: NT Pro Brain Natriuretic Pep. 112 pg/mL (0-125)
[2024-11-20 16:46] LABS: Troponin I < 0.01 ng/ml (0.00-0.034)
[2024-11-20 16:51] LABS: Potassium 4.1 mmoL/L (3.5-5.1)
--- NOTE | 2024-11-20 17:04 | PC.NURSE ---
paged Dr. Duggan, on-call for Dr. Ortega
--- NOTE | 2024-11-20 17:19 | PC.NURSE ---
Dr. Astorga s/w Dr. Duggan, agrees to admit. night supervisor notified for admission
[2024-11-20 17:20] LABS: Hemoglobin A1C 5.2 % (4.0-6.0)
--- NOTE | 2024-11-20 17:29 | MR_ITS ---
PROCEDURE INFORMATION: Exam: MR Head Without Contrast Exam date and time: 11/20/2024 5:49 PM Age: 69 years old Clinical indication: Stroke-like symptoms; RT upper extremity and RT lower extremity weakness; Additional info: R sided weakness [id number] TECHNIQUE: Imaging protocol: Magnetic resonance imaging of the head without contrast. COMPARISON: CT ANGIO HEAD 11/20/2024 4:02 PM FINDINGS: Major vascular flow voids at the skull base are preserved. No extra-axial fluid collection. No obstructive hydrocephalus. Mild age-related volume loss. Diffusion restriction at the left basal ganglia extending to the left osorio radiata measuring up to 1.2 cm. Associated T2 prolongation. Moderate paranasal sinus disease. Small bilateral mastoid effusions. IMPRESSION: 1.2 cm acute/early subacute infarct at the left basal ganglia extending to the osorio radiata. THIS REPORT CONTAINS FINDINGS THAT MAY BE CRITICAL TO PATIENT CARE. The findings were verbally communicated via telephone conference with BORA Simmons at 6:11 PM EST on 11/20/2024. The findings were acknowledged and understood.
[2024-11-20] MEDS: LISINOPRIL 5MG TABLET 5 MG PO (17:46)
[2024-11-20 17:58] VITALS: BP 152/91; PULSE 75; RESP 16; TEMP 36.8; O2SAT 96
[2024-11-20 18:00] VITALS: BP 146/77; PULSE 53; RESP 16; TEMP 36.5; O2SAT 93
--- NOTE | 2024-11-20 18:13 | PC.NURSE ---
arrived by w/c from MRI
--- NOTE | 2024-11-20 18:21 | PC.NURSE ---
Clem Taylor PAC s/w [facility] with MRI findings. These results were also discussed with Dr. Astorga. I updated Cheryl Serrano RN
[2024-11-20 19:38] LABS: Troponin I < 0.01 ng/ml (0.00-0.034)
[2024-11-20 20:00] VITALS: BP 145/60; PULSE 53; RESP 16; TEMP 36.7; O2SAT 96
[2024-11-20 23:00] LABS: Troponin I < 0.01 ng/ml (0.00-0.034)
[2024-11-21 04:00] VITALS: BP 149/73; PULSE 52; RESP 16; TEMP 36.6; O2SAT 96; BMI 25.2
--- NOTE | 2024-11-21 05:50 | PC.NURSE ---
Pt. is alert and orientated x 4. c/o right sided weakness and a feeling of heaviness in the right arm and leg. Pt. able to raise right arm and leg. has full range o f motion the arm and leg. Hand grasp this morning are stronger than last night. Pt. states he feels like his leg is stronger this morning when getting to the bathroom. Pt. denies headache, pain, sob, or chest pain. Pt answered any questions asked appropriatly. VSS. personal items and call dalton in reach.
[2024-11-21 08:00] VITALS: BP 153/73; PULSE 55; RESP 20; TEMP 36.6; O2SAT 97
[2024-11-21] MEDS: ACETAMINOPHEN 325MG TAB 650 MG PO (08:04)
--- NOTE | 2024-11-21 09:51 | EXP.HPDC ---
General Admission date:: 11/20/24 Discharge date: 11/21/24 *Admission Date: 11/20/24 *Chief complaint: Right sided weakness *History of present illness: Mr. Avila is a 69 year old patient of [facility], who presented the [facility] ER yesterday with acute worsening of right sided weakness and difficulty walking. He had fallen a few times at home as well but did not hit his head or lose consciousness. Patient has a history of hyperlipidemia and has stopped taking his Lipitor some time ago. He also has 60 pack year smoking history, and currently smokes 1.5 packs per day. [facility] Disclaimer: The information contained in this section may have been updated after the patient was seen, as this information can be updated by other users. Medical History (Updated 11/21/24 @ 10:00 by Marcelino Ortega MD) IFG (impaired fasting glucose) Colon polyp Allergic rhinitis Erectile dysfunction Chronic sinusitis Anxiety Depression GERD (gastroesophageal reflux disease) Nicotine dependence, unspecified, uncomplicated Hyperlipidemia COPD (chronic obstructive pulmonary disease) Surgical History (Updated 11/21/24 @ 10:00 by Marcelino Ortega MD) S/P colonoscopy S/P tonsillectomy Family History (Updated 11/21/24 @ 01:31 by Leticia Calderón RN) No significant family history Social History (Updated 11/21/24 @ 01:32 by Leticia Calderón RN) Smoking Status: Current every day smoker tobacco type: cigarettes packs per day: 1 alcohol intake: current alcohol intake frequency: a few times a month substance use type: marijuana current occupational status: retired Travel in the last 8 weeks: None caffeine: Yes Have you lived/traveled outside US in past 30 days?: No Contact w/someone who lives/traveled outside US past 30 days?: No Exposure to someone with infectious disease in past 14 days?: No Do you have a fever (greater than 100.4 F or 38 C)?: No Have you tested positive for COVID-19: No Exposed to someone with COVID-19 in past 14 days?: No Do you have a sore throat?: No Do you have a cough?: No Do you have any weakness?: No Do you have any diarrhea?: No Are you experiencing any unusual bleeding?: No Do you have any muscle aches/pain?: No Do you have any abdominal pain?: No Are you experiencing loss of taste or smell?: No Other Medical History Have you received the Flu Vaccine for this season: Yes Have you received the Pneumonia Vaccine: Yes Review of Systems Constitutional Constitutional: Denies chills and Denies fever(s) *Cardiovascular Cardiovascular: Denies chest pain and Denies dyspnea *Respiratory Respiratory: Denies dyspnea *Gastrointestinal Gastrointestinal: Denies abdominal pain *Genitourinary Genitourinary: Denies difficulty urinating *Musculoskeletal Musculoskeletal: Denies arthralgias *Neurologic Neurologic: Reports as per HPI Exam Data for Last 24 hours Vital signs and Labs for Last 24 Hours: Temp Pulse Resp BP Pulse Ox O2 Del Method 97.8 F 55 L 20 153/73 H 97 Room Air 11/21/24 08:00 11/21/24 08:00 11/21/24 08:00 11/21/24 08:00 11/21/24 08:00 11/21/24 08:00 Laboratory Results - last 24 hr 11/20/24 16:00: WBC 5.7, RBC 5.42, Hgb 16.7, Hct 49.3, MCV 91.0, MCH 30.8, MCHC 33.9, RDW 12.4, Plt Count 198, MPV 10.2, Neut % (Auto) 57.6, Lymph % (Auto) 32.3, Shackelford % (Auto) 7.2, Eos % (Auto) 1.6, Baso % (Auto) 1.1, Neut # (Auto) 3.3, Lymph # (Auto) 1.8, Shackelford # (Auto) 0.4, Eos # (Auto) 0.1, Baso # (Auto) 0.1, Sodium 138, Potassium 7.5 H*, Chloride 104, Carbon Dioxide 26, Anion Gap 15.5 H, BUN 8 L, Creatinine 0.80, Estimated Creat Clear 80, Estimated GFR 95, Est GFR ( Amer) 115, Glucose 102 H, Hemoglobin A1c 5.2, Calcium 9.7, Total Bilirubin 0.9, AST 28, ALT 22, Alkaline Phosphatase 67, Troponin I < 0.01, NT-Pro-B Natriuret Pep 112, Total Protein 7.2, Albumin 4.4, Globulin 2.8, Albumin/Globulin Ratio 1.6, Triglycerides 131, Cholesterol 229 H, LDL Cholesterol Direct 147.99 H, VLDL Cholesterol 26, HDL Cholesterol 46, Cholesterol/HDL Ratio 5.0 H, Lipase 57 11/20/24 16:30: Potassium 4.1 D 11/20/24 19:07: Troponin I < 0.01 11/20/24 : Troponin I < 0.01 I & O for Last 24 hours: Intake & Output 11/18/24 11/19/24 11/20/24 11/21/24 23:59 23:59 23:59 23:59 Intake Total 200 / 200 270 / 270 Output Total 0 / 0 0 / 0 Balance 200 / 200 270 / 270 Weight 184 lb 175 lb 14.4 oz Constitutional Constitutional: no acute distress *Routine HEENT Exam Head: Present normocephalic Eye: Present EOMI and PERRL ENT: Present mucous membranes moist *Routine Neck Exam Neck: Present supple; Absent lymphadenopathy *Routine Respiratory Exam Respiratory: Present CTA bilaterally *Routine Cardiovascular Exam Cardiovascular: Present RRR *Routine Abdominal Exam Abdominal: Present soft and normoactive bowel sounds; Absent tenderness *Routine Rectal Exam Rectal:: deferred *Routine Genitalia Exam Genitalia:: deferred *Routine Extremities Exam Extremities: Absent cyanosis, clubbing or edema *Routine Skin Exam Skin: Present warm; Absent rash *Routine Neurological Exam Neurological: Present alert and oriented X3 Comments: 4/5 strength in right upper and lower extremity Meds Home Medications and Allergies Home Medications ?Medication ?Instructions ?Recorded ?Confirmed ?Type albuterol sulfate 90 mcg/actuation 2 puffs IH DAILY COPD 03/17/19 11/20/24 History aerosol inhaler fluoxetine 90 mg capsule,delayed 90 mg PO DAILY Depression 03/17/19 11/20/24 History release fluticasone propionate 220 12 gm IH DAILY COPD 03/17/19 11/20/24 History mcg/actuation HFA aerosol inhaler aspirin 81 mg tablet,delayed 81 mg PO DAILY #30 tabs 11/21/24 Rx release (Adult Aspirin Regimen) atorvastatin 80 mg tablet (Lipitor) 80 mg PO DAILY #30 tabs 11/21/24 Rx clopidogrel 75 mg tablet (Plavix) 75 mg PO DAILY #30 tabs 11/21/24 Rx lisinopril 5 mg tablet 5 mg PO DAILY #30 tabs 11/21/24 Rx nicotine 21 mg/24 hr daily 1 patch transdermal DAILY #28 ea 11/21/24 Rx transdermal patch New Prescriptions to Start Prescriptions: aspirin [Adult Aspirin Regimen] Elsa,Marcelino atorvastatin [Lipitor] Elsa,Marcelino clopidogrel [Plavix] Elsa,Marcelino lisinopril Elsa,Marcelino nicotine Elsa,Marcelino Allergies Allergy/AdvReac Type Severity Reaction Status Date / Time Penicillins Allergy Verified 09/20/21 14:58 Hospital Course Hospital Course Hospital Course: He had an extensive evaluation in the ER which included an MRI that showed an acute left basal ganglia CVA. He was admitted for further monitoring. Physical therapy evaluation was ordered. Patient was given aspirin, plavix, lisinopril and high dose Lipitor. Smoking cessation was discussed. He was tolerating a regular diet and was anxious to go home. Plan to defer echo to outpatient setting next week. Results Data Completed and Pending Labs on day of discharge: Labs from last 24 hours 11/20/24 11/20/24 11/20/24 Unknown 19:07 16:30 WBC RBC Hgb Hct MCV MCH MCHC RDW Plt Count MPV Neut % (Auto) Lymph % (Auto) Shackelford % (Auto) Eos % (Auto) Baso % (Auto) Neut # (Auto) Lymph # (Auto) Shackelford # (Auto) Eos # (Auto) Baso # (Auto) Sodium Potassium 4.1 D Chloride Carbon Dioxide Anion Gap BUN Creatinine Estimated Creat Clear Estimated GFR Est GFR ( Amer) Glucose Hemoglobin A1c Calcium Total Bilirubin AST ALT Alkaline Phosphatase Troponin I < 0.01 < 0.01 NT-Pro-B Natriuret Pep Total Protein Albumin Globulin Albumin/Globulin Ratio Triglycerides Cholesterol LDL Cholesterol Direct VLDL Cholesterol HDL Cholesterol Cholesterol/HDL Ratio Lipase 11/20/24 16:00 WBC 5.7 RBC 5.42 Hgb 16.7 Hct 49.3 MCV 91.0 MCH 30.8 MCHC 33.9 RDW 12.4 Plt Count 198 MPV 10.2 Neut % (Auto) 57.6 Lymph % (Auto) 32.3 Shackelford % (Auto) 7.2 Eos % (Auto) 1.6 Baso % (Auto) 1.1 Neut # (Auto) 3.3 Lymph # (Auto) 1.8 Shackelford # (Auto) 0.4 Eos # (Auto) 0.1 Baso # (Auto) 0.1 Sodium 138 Potassium 7.5 H* Chloride 104 Carbon Dioxide 26 Anion Gap 15.5 H BUN 8 L Creatinine 0.80 Estimated Creat Clear 80 Estimated GFR 95 Est GFR ( Amer) 115 Glucose 102 H Hemoglobin A1c 5.2 Calcium 9.7 Total Bilirubin 0.9 AST 28 ALT 22 Alkaline Phosphatase 67 Troponin I < 0.01 NT-Pro-B Natriuret Pep 112 Total Protein 7.2 Albumin 4.4 Globulin 2.8 Albumin/Globulin Ratio 1.6 Triglycerides 131 Cholesterol 229 H LDL Cholesterol Direct 147.99 H VLDL Cholesterol 26 HDL Cholesterol 46 Cholesterol/HDL Ratio 5.0 H Lipase 57 Imaging and Cardiology MRI - head: Status: final report (Acute CVA) DS: Diagnosis Discharge Diagnosis (1) Acute stroke of basal ganglia: Status: Acute Code(s): I63.9 - Cerebral infarction, unspecified (2) COPD (chronic obstructive pulmonary disease): Status: Acute Code(s): J44.9 - Chronic obstructive pulmonary disease, unspecified (3) Acute right-sided muscle weakness: Status: Acute Code(s): M62.81 - Muscle weakness (generalized) (4) Hyperlipidemia: Status: Acute Code(s): E78.5 - Hyperlipidemia, unspecified (5) Nicotine dependence, unspecified, uncomplicated: Status: Acute Code(s): F17.200 - Nicotine dependence, unspecified, uncomplicated (6) GERD (gastroesophageal reflux disease): Status: Acute Code(s): K21.9 - Gastro-esophageal reflux disease without esophagitis Discharge Plan Disposition Patient Disposition: Home, Self-Care Condition: Fair Follow up Plan Follow up with: Marcelino Ortega MD [Primary Care Provider] - 11/27/24 (please call for appointment) Prescriptions/Medication Reconciliation: New aspirin [Adult Aspirin Regimen] 81 mg tablet,delayed release (DR/EC) 81 mg PO DAILY Qty: 30 0RF clopidogrel [Plavix] 75 mg tablet 75 mg PO DAILY Qty: 30 0RF lisinopril 5 mg tablet 5 mg PO DAILY Qty: 30 0RF atorvastatin [Lipitor] 80 mg tablet 80 mg PO DAILY Qty: 30 0RF nicotine 21 mg/24 hr patch 24 hour 1 patch transdermal DAILY Qty: 28 0RF Continued fluoxetine 90 MG capsule,delayed release(DR/EC) 90 mg PO DAILY fluticasone propionate 120 PUFFS HFA aerosol inhaler 12 gm IH DAILY albuterol sulfate 8.5 GM HFA aerosol inhaler 2 puffs IH DAILY Discontinued atorvastatin 10 MG tablet 10 mg PO HS Problem Reconciliation Problems Reviewed?: Yes Patient Discharge Instructions ACTIVITY: Limited activity DIET: low fat, low cholesterol and low salt diet Patient Instructions: DI for Stroke-Ischemic, Nicotine Addiction, Support for Smokers Wanting to Quit, Reasons to Quit Smoking Print Language: Macanese Providers Primary Care Provider: Marcelino Ortega Admit Provider: Edgar Duggan Attending Provider: Marcelino Ortega
[2024-11-21] MEDS: CLOPIDOGREL 75MG TAB 75 MG PO (10:51)
[2024-11-21] MEDS: ATORVASTATIN 40MG TABLET 80 MG PO (10:51)
[2024-11-21] MEDS: LISINOPRIL 5MG TABLET 5 MG PO (10:51)
[2024-11-21] MEDS: ASPIRIN EC 81MG TABLET 81 MG PO (10:51)
--- NOTE | 2024-11-21 11:09 | HMH.PTEV ---
Physical Therapy Evaluation Rehab PT IP Evaluation Start: 11/21/24 09:47 Freq: ONCE Status: Active Protocol: Document 11/21/24 11:07 NIGEL (Rec: 11/21/24 11:09 NIGEL [id number]) Subjective/History History History Per H&P: Mr. Avila is a 69 year old patient of [facility], who presented the [facility] ER yesterday with acute worsening of right sided weakness and difficulty walking. He had fallen a few times at home as well but did not hit his head or lose consciousness. Patient has a history of hyperlipidemia and has stopped taking his Lipitor some time ago. He also has 60 pack year smoking history, and currently smokes 1.5 packs per day. Subjective Subjective Pt lives in a 2 story home with his . Pt usually IND with all mobility without AD use. New diagnosis of cancer in past 12 No months? Rehab PT IP Eval Objective Appearance Patient Behavior Appropriate,Cooperative Patient Orientation Person,Situation Difficulty following instructions none Speech Pattern Clear Ambulation Patient Able to Ambulate Yes Ambulation Observation IP General Gait Pattern Observation Ataxic Gait Ambulation Distance (feet) 30 Ambulation Assistive Device None Ambulation Ability Supervision/Stand by Balance Ability to Arise Able, uses arms to help Sitting Balance Steady, safe Standing Balance Steady, wide stance Dynamic Sitting Balance Ability Good Dynamic Standing Balance Ability Good Transfers Bed Transfer Ability Independent Sit to Stand Bed Transfer Ability Independent Rehab PT IP prob,goals,plan Problems Date of Evaluation: 11/21/24 Rehab Potential Rehab Potential Innapropriate for Skilled Therapy Discharge Plan PT Discharge Plan Pt demo'd decreased R knee flexion during gait but with no LOB or assistance required for safety. Pt IND-SUP for functional mobility without AD use. Pt most appropriate to d /c home with supervision as needed provided by . Eval Complexity Eval Charge Codes 63078 - Moderate Complexity PHYSICIAN CERTIFICATION: I certify the specified therapy services for Richard Avila are required, authorized, and reviewed every 30 days.
--- NOTE | 2024-11-23 13:09 | CARE MANAGER ---
Spoke with patient's . She reports that patient is still having some dizziness. She tried to reach Dr. Ortega's office, but they are closed for the day. She states she will call them in the morning and to schedule an appointment and discuss his dizziness with them. Denies any other questions. Has new medication. JAIR Quiros
== END 2024-11-21 11:07 | disposition home or self-care (01) ==
LOC: ER 16:32 → 2ND 17:23
PROVIDERS: Admitting Provider Internal Medicine Adolescent Medicine; Emergency Provider Emergency Medicine; PCP Family Medicine; Visit Provider Family Medicine
DX: I63.89 Other cerebral infarction (principal); J44.9 Chronic obstructive pulmonary disease, unspecified; M62.81 Muscle weakness (generalized); E78.5 Hyperlipidemia, unspecified; K21.9 Gastro-esophageal reflux disease without esophagitis; G81.91 Hemiplegia, unspecified affecting right dominant side; F17.210 Nicotine dependence, cigarettes, uncomplicated; Z79.899 Other long term (current) drug therapy; R29.703 NIHSS score 3
CPT/HCPCS: 70450; 70496; 70498; 70551; 71045; 80053; 80061; 83036; 83690; 83880; 84132; 84484; 85025; 93005; 97162; 99285; G0378; J7120; Q9967

== ENCOUNTER 2024-12-01 14:57 | Outpatient (CLI) | payer MEDICARE, SELFPAY ==
--- NOTE | 2024-12-01 | CA_ITS ---
APPROVED REPORT EXAM: Comprehensive 2D, Doppler, and color-flow Echocardiogram Software Technician: Fanta Barclay RVT Ht: 5 ft 10 in Wt: 179lbs BSA: 1.99 BP: 153/73 mmHg Indications: copd,cva,ex smoker,hld 2D Dimensions IVSd 1.12 cm M: 0.6-1.2 LVEF (Visual) 68.70 % PWd 0.76 cm M: 0.6 - 1.2 LA Volume 33.00 mL LVDd 3.24 cm M: 4.2 - 5.9 LA Volume Index 16.58 mL/m2 (M/F) 16-34 LVDs 2.03 cm M: 2.5 - 4.0 M-Mode Dimensions LA Diam 2.88 cm (1.9-4.0) TAPSE 2.30 (<1.7) LV Diastology E Decel Time 260 (160-240 msec) E/A Ratio 0.6 Aortic Valve JOSE G Index 1.60 cm2/m2 AoV Peak Baldomero. 115.0 (50-130 cm/s) AO Peak GR. 5.30 mmHg AO Mean GR. 3.20 (<5 mmHg) AO VTI 21.1 (18-25 cm) JOSE G (VTI) 3.26 (2.5-4.5 cm2) Mitral Valve MV E Max Baldomero. 53.0 (40-130 cm/s) MV A Velocity 94.0 (40-130 cm/s) E/A Ratio 0.56 MV Mean Gr. 0.90 (<2mmHg) MV PHT 76.0 ms Pulmonary Valve PV Peak Velocity 74.0 (50-150 cm/s) Tricuspid Valve TR P. Velocity 114.00 cm/s RAP Estimate 10.00 mmHg RVSP 15.20 mmHg Left Ventricle The left ventricle is normal size. The left ventricular systolic function is normal. The left ventricular ejection fraction is within the normal range. There is increased LV wall thickness. There is normal LV segmental wall motion. Transmitral Doppler flow pattern suggests impaired LV relaxation. LVEF is 60%. Right Ventricle The right ventricle is normal size. The right ventricular systolic function is normal. Atria The left atrium size is normal. The right atrium size is normal. There is no Doppler evidence of interatrial shunt. Aortic Valve Aortic valve is mildly thickened. There is no aortic valvular stenosis. No aortic regurgitation is present. Mitral Valve The mitral valve is mildly thickened. No evidence of mitral valve stenosis. Trace mitral regurgitation. Tricuspid Valve Tricuspid valve is grossly normal in structure and function. Trace tricuspid rotation. There is insufficient TR jet to estimate RVSP. Pulmonic Valve The pulmonary valve is normal in structure. Trace pulmonic regurgitation. Great Vessels The aortic root is normal in size. The ascending aorta is normal in size. IVC is normal in size and collapses >50% with inspiration. Pericardium There is no pericardial effusion. Other Information Study Quality: Fair Conclusion Normal biventricular systolic function. No significant valvular stenosis or regurgitation. Electronically signed by : Carol Brooks MD 12/09/2024 14:43:57
== END 2024-12-01 23:59 | disposition home or self-care (01) ==
LOC: RT 14:59
PROVIDERS: PCP Family Medicine; Visit Provider Family Medicine
DX: I63.9 Cerebral infarction, unspecified (principal); J44.9 Chronic obstructive pulmonary disease, unspecified; E78.5 Hyperlipidemia, unspecified; Z87.891 Personal history of nicotine dependence
CPT/HCPCS: 93306

== ENCOUNTER 2025-08-16 14:24 | Outpatient (CLI) | payer MEDICARE, SELFPAY ==
--- OUTSIDE RECORDS SUMMARY | 2024-12-25 07:00 | XMS_ITS ---
[facility] [address] [facility] [address] [place] [id number] Care Team Providers Care Toll Collector Name Role Phone Marcelino Ortega Primary Care Provider Allergies Allergen (clinical drug ingredient) Drug/Non Drug Allergy documented on EMR Reaction Allergy Type Onset Date Status Penicillin Peeling of skin Drug Allergy Active REASON FOR VISIT 4 weeks Medications Medication SIG (Take, Route, Frequency, Duration) Notes Start Date End Date Status Fluticasone Propionate 50 MCG/ACT 1 spray(s) intranasally once a day Active FLUoxetine HCl 40 MG Take 1 capsule by m out once daily for 90 days; Duration: 90 days Active Aspirin 81 MG 1 tablet Orally Once a day Active Sildenafil Citrate 20 MG 5 tab(s) orally once daily as needed 05/15/2021 Active ProAir Digihaler 108 (90 Base) MCG/ACT 2 puff(s) inhaled 4 times a day as needed 06/28/2014 Active Nicotine 21 MG/24HR 1 patch to skin Transdermal Once a day Active Lansoprazole 30 MG 1 capsule 1/2 to 1 h our before morning meal Orally Once a day; Duration: 90 days Active Lisinopril 5 MG 2 tablets Orally Onc e a day; Duration: 90 days Active Vital Signs Blood pressure systolic 120 mm Hg 12/25/19 25 Blood pressure diastolic 72 mm Hg 025 Heart Rate 78 /min 12/25/2024 Height 71.50 in 12/25/2024 Weight 179.2 lbs 12/25/2024 BMI 24.64 kg/m2 12/25/2024 Encounters Encounter Location Date Provider Diagnosis [facility] [address] [facility] [address] [facility] [address] [place] [id number] 12/25/2024 Marcelino Ortega Right sided weakness R53.1 and Acute stroke of basal ganglia I63.9 Assessments Encounter Date Diagnosis (ICD Code) Assessment Notes Treatment Notes Treatment Clinical Notes Section Notes 12/25/2024 Right sided weakness (ICD-10 - R53.1) Improved 12/25/2024 Acute stroke of basal ganglia (ICD-10 - I63.9) Plan Of Treatment Medication Medication Name Sig Start Date Stop Date Notes Aspirin 81 MG 1 tablet Orally Once a day Treatment Notes Assessment Notes Right sided weakness Improved Next Appt Details Follow Up: as scheduled,and prn, Reason: Provider Name:Marcelino Kc ry, 09/27/2025 01:45:00 PM, [address] [facility] [address] [facility], [address], [place], [phone], Progress Notes * Richard AVILA ADOB:[birth year] (69 yo M)Acc No.[id number]:12/25/2024 Progress Notes Patient: Richard PEREZ Provider: Sudeep Ortega M.D. :1955 A ge:69 Y S ex:Male Date:12/25/2024 Address:[address] [place] [address], [place], [id number] Subjective: * Chief Complaints: * 1 . 4 weeks. * HPI: C ardiology: 69 year old male presents with c/o Stroke P t here to f/u on 11/21/2024 stroke. Pt states he is doing well and does not have any concerns today. * ROS: D ERMATOLOGY: no R marcelino. n o H citlaly. G ASTROENTEROLOGY: no N ausea. n o V omiting. U ROLOGY: no D ifficulty urinating. n o B lood in urine. * Medical History: D epression, Anxiety, COPD, Abnormal PFT's, 03/2012, Esophageal Reflux, Hyperlipidemia, Erectile Dysfunction, Allergic Rhinitis, Chronic Sinusitis, S/P ENT Evaluation, 50 pack year smoking history as of 2018, Colon Polyps. * Surgical History: T onsilectomy 2010, Colonoscopy 2019. * Hospitalization/Major Diagno stic Procedure: P neumonia 2004. * Family History: F ather: . M other: alive. 2 brother(s) - healthy. 2 son(s) - healthy. . * Social History: C URRENT TOBACCO USE S moking Status: Patient does smoke, packs per day: 1.5. C affeine: yes, frequency: 5 cups a day. Exercise: no. Marital Status: . Past smoking status: yes, Smoking status: Patient does smoke, Packs per day: 1, Smoking preference: cigarettes. Alcohol: Yes, moderately. Sexually active: yes. * Medications: T aking Nicotine 21 MG/24HR Patch 24 Hour 1 patch to skin Transdermal Once a day , Taking Fluticasone Propionate 50 MCG/ACT Suspension 1 spray(s) intranasally once a day , Taking Sildenafil Citrate 20 MG Tablet 5 tab(s) orally once daily as needed , Taking ProAir Digihaler 108 (90 Base) MCG/ACT Aerosol Powder Breath Activated 2 puff(s) inhaled 4 times a day as needed , Taking FLUoxetine HCl 40 MG Capsule Take 1 capsule by mouth once daily for 90 days , Taking Lisinopril 5 MG Tablet 2 tablets Orally Once a day , Taking Lansoprazole 30 MG Capsule Delayed Release 1 capsule 1/2 to 1 hour before morning meal Orally Once a day , Taking Aspirin 81 MG Tablet Delayed Release 1 tablet Orally Once a day , Medication List reviewed and reconciled with the patient * Allergies: P enicillin: Peeling of skin. Objective: * Vitals: W t:179.2, Temp:97.8, BP:120/72, HR:78, O2 Sat:93% on RA, Nurse:rashad, Ht: 71.50, BMI:24.64. * Examination: G eneral Examination: General Appearance: N AD, using a c ane to assist with ambulation. H eart: R SR. L ungs: c lear to auscultation. N eurologic Exam: g ait and right sided strength have improved. Assessment: * Assessment: 1. A cute stroke of basal ganglia - I63.9 (Primary) 2 . R ight sided weakness - R53.1 Plan: * Treatment: 2. R ight sided weakness Notes: Improved * Procedure Codes: G 2211 Complex e/m visit add on, 3074F SYST BP LT 130 MM HG, 3078F DIAST BP < 80 MM HG * Follow Up: a s scheduled,and prn * Images: Billing Information: * Visit Code: 85973 Office Visit, Est Pt., Level 3. * Procedure Codes: G2211 Complex e/m visit add on. 3074F SYST BP LT 130 MM HG. 3078F DIAST BP < 80 MM HG. * Electronic signature of Sadaf Ortega MD on 08/16/2025 at 02:30 PM EDT Sign off status: Pending * Provider: Sudeep Ortega M.D. Date: 0 12/25/2024 Generated for Kashif mack/Ozzy/Nichelleitting on: 0 08/16/2025 02:30 PM EDT History and Physical Notes * HPI (History of Present Illness) Category Sub-Category Detail Notes Category Not es Cardiology Stroke Pt here to f/u o n 11/21/2024 stroke. Pt states he is doing well and does not have any concerns today Examination Category Sub-Category Detail Notes Category Not es General Examination Heart: RSR Lungs: clear to auscultatio n General Appearance: NAD, using a cane to assist with ambulation Neurologic Exam: gait and right sided strength have improved
--- OUTSIDE RECORDS SUMMARY | 2025-02-12 09:30 | XMS_ITS ---
Author Organization [facility] Address [address] [place] [phone] Care Team Providers Care Design Cell Engineer Name Role Phone Marcelino Ortega Primary Care Provider Allergies Allergen (clinical drug ingredient) Drug/Non Drug Allergy documented on EMR Reaction Allergy Type Onset Date Status Penicillin Peeling of skin Drug Allergy Active Results Component Value Reference Range Notes Urinalysis - Inhouse Reviewed date:02/12/2025 05:21:29 PM Interpretation: Performing Lab: Notes/Report: Color/Clarity yellow/clear Leuk Neg Nitrite Neg Urobili 33 Protein Neg pH 6.5 Blood Trace-Lysed Sp. Gr. 1.020 Ketone Neg Bili Neg Glucose (In-House) Reviewed date:02/14/2025 11:19:38 AM Interpretation:73 Normal Performing Lab: Notes/Report: 73 Normal blood glucose 73 74 - 106 mg/dL P-Comprehensive Metabolic Pa marivel ([facility]) Reviewed date:02/14/2025 11:19:38 AM Interpretation: Normal Performing Lab: Notes/Report: Test performed by [facility] [address] [place] [address] , [address], [place] [address] Montez Martinez MD, Lay Out Machine Operator CLIA: [id number] Sodium 140 135-145 mmol/L Potassium 4.7 3.5-5.3 mmol/L Chloride 105 97-108 mmol/L CO2 24 22-32 mmol/L Glucose 95 65-99 mg/dL BUN 14 8-23 mg/dL Creatinine 0.89 0.70-1.30 mg/dL Calcium 9.9 8.6-10.4 mg/dL eGFR by Creatinine 91 >59 mL/min/1.73m2 Protein 6.6 6.0-8.3 g/dL Albumin 4.2 3.5-5.3 g/dL Alkaline Phosphatase 73 40-129 IU/L ALT (SGPT) 16 <5-55 IU/L AST (SGOT) 14 <5-46 IU/L Bilirubin, Total 0.6 <0.2-1.2 mg/dL A/G Ratio 1.8 1.1-2.5 P-Hemoglobin A1C Reviewed date:02/14/2025 11:19:38 AM Interpretation: Normal Performing Lab: Notes/Report: Test performed by [facility] [address] [place] [address] [address] , [place] [address] Montez Martinez MD, Lay Out Machine Operator CLIA: [id number] Hemoglobin A1C 5.4 <5.7 % The following HbA1c ranges recommended by the [place] [employer] (ADA) may be used as an aid in the diagnosis of diabetes mellitus. HbA1c Suggested Diagnosis >=6.5% Diabetic 5.7% - 6.4% Pre-Diabetic <5.7% Non-Diabetic P-Lipid Panel Reviewed date:02/14/2025 11:19:38 AM Interpretation:chol 221, chol/hdl 5.39, non-hdl 180, ldl 155, ldl/hdl 3.8 Performing Lab: Notes/Report: Test performed by [facility] [address] [place] [address] [address] , [place] [address] Montez Martinez MD, Lay Out Machine Operator CLIA: [id number] Cholesterol 221 <200 mg/dL Triglycerides 124 <150 mg/dL HDL Cholesterol 41 >39 mg/dL Cholesterol / HDL Ratio 5.39 0.00-4.99 Ratio Non-HDL Cholesterol 180 <130 mg/dL LDL Cholesterol (Calculation) 155 <130 mg/dL LDL Cholesterol Levels* Less than 100 mg/dL Optimal 100 to 129 mg/dL Near Optimal/ Above Optimal 130 to 159 mg/dL Borderline High 160 to 189 mg/dL High 190 mg/dL and above Very High * Categories as recommended by the 2004 ATPIII guidelines LDL/HDL Ratio 3.8 <3.3 Ratio LDL Cholesterol Patient History Test Date: 02/12/2024 LDL Results: 142 Units: mg/dL % Change: - Test Date: 02/12/2025 LDL Results: 155 Units: mg/dL % Change: +9% P-TSH reflex to FT4 Reviewed date:02/14/2025 11:19:38 AM Interpretation: Normal Performing Lab: Notes/Report: Test performed by [facility] [address] [place], [place] [address] [place] [address] Montez Martinez MD, Lay Out Machine Operator CLIA: [id number] TSH reflex to FT4 1.31 0.43-5.25 mU/L Estimated Average Glucose Reviewed date:02/14/2025 11:19:38 AM Interpretation: Normal Performing Lab: Notes/Report: Test performed by [facility] [address] [place], [place] [address] [place] [address] Montez Martinez MD, Lay Out Machine Operator CLIA: [id number] Estimated Average Glucose (eAG) 108 Estimated Average Glucose (eAG) is calculated using the equation eAG = (28.7 x HbA1c) - 46.7 based on the guidelines established by the ADA. If the patient has certain diseases including kidney disease, sickle cell anemia, thalassemia, or is taking medications such as dapsone, erythropoietin, or iron, eAG should not be evaluated. Reason For Referral Diagnosis 1 Microscopic hematuri a (R31.29) Diagnosis 2 Polyuria (R35.89) Diagnosis 3 Urinary hesitancy (R 39.11) Referral Organization [email or web address] Referring Provider First Name Marcelino Referring Provider Last Name Shannon [facility]erred Provider Thierry Copeland Referred Provider Specialty Urology General Notes Liss Wade 02/16/20 25 1:52:28 PM > faxed to Dr. Copeland's office Referral Priority Routine REASON FOR VISIT 6 Month Check Up Medications Medication SIG (Take, Route, Frequency, Duration) Notes Start Date End Date Status Lisinopril 5 MG 2 tablets Orally Onc e a day; Duration: 90 days Active Lansoprazole 30 MG 1 capsule 1/2 to 1 h our before morning meal Orally Once a day Active Aspirin 81 MG 1 tablet Orally Once a day Active ProAir Digihaler 108 (90 Base) MCG/ACT 2 puff(s) inhaled 4 times a day as needed 06/28/2014 Active Nicotine 21 MG/24HR 1 patch to skin Transdermal Once a day Active Sildenafil Citrate 20 MG 5 tab(s) orally once daily as needed 05/15/2021 Active FLUoxetine HCl 40 MG Take 1 capsule by m out once daily for 90 days; Duration: 90 days Active Fluticasone Propionate 50 MCG/ACT 1 spray(s) intranasally once a day Active Problems Problem Type SNOMED Code ICD Code Onset Dates Problem Status W/U Status Risk Notes Problem Urinary hesitancy (9889736) Urinary hesitancy (R39.11) Active confirmed Vital Signs Blood pressure systolic 122 mm Hg 02/13/20 25 Blood pressure diastolic 74 mm Hg 025 Heart Rate 88 /min 02/12/2025 Height 71.50 in 02/12/2025 Weight 184 lbs 02/12/2025 BMI 25.30 kg/m2 02/12/2025 Encounters Encounter Location Date Provider Diagnosis [place] [address] [place] [id number] 02/12/2025 Marcelino Ortega Pure hypercholestero lemia E78.00 ; IFG (impaired fasting glucose) R73.01 ; Gastroesophageal reflux disease, unspecified whether esophagitis present K21.9 ; Chronic obstructive pulmonary disease, unspecified COPD type J44.9 ; Depression with anxiety F41.8 ; Polyuria R35.89 ; Prostate cancer screening Z12.5 and Microscopic hematuria R31.29 Assessments Encounter Date Diagnosis (ICD Code) Assessment Notes Treatment Notes Treatment Clinical Notes Section Notes 02/12/2025 Pure hypercholesterolemia (ICD-10 - E78.00) 02/12/2025 IFG (impaired fastin g glucose) (ICD-10 - R73.01) 02/12/2025 Gastroesophageal ref lux disease, unspecified whether esophagitis present (ICD-10 - K21.9) 02/12/2025 Chronic obstructive pulmonary disease, unspecified COPD type (ICD-10 - J44.9) 02/12/2025 Depression with anxi ety (ICD-10 - F41.8) 02/12/2025 Polyuria (ICD-10 - R35.89) 02/12/2025 Prostate cancer screening (ICD-10 - Z12.5) 02/12/2025 Microscopic hematuri a (ICD-10 - R31.29) Plan Of Treatment Medication Medication Name Sig Start Date Stop Date Notes Lansoprazole 30 MG 1 capsule 1/2 to 1 h our before morning meal Orally Once a day ProAir Digihaler 108 (90 Bas e) MCG/ACT 2 puff(s) inhaled 4 times a day as needed 06/28/2014 Referrals Referral Date Details 02/12/2025 02/12/2025, Thierry Gillespie Appt Details Follow Up: 6 Months, Reason: Provider Name:Marcelino Kc ry, 09/27/2025 01:45:00 PM, [address], [address] , [place], [place], [id number], Progress Notes * Richard AVILA ADOB:[birth year] (69 yo M)Acc No.[id number]:02/12/2025 Progress Notes Patient: Richard PEREZ Provider: Sudeep Ortega M.D. :1955 A ge:69 Y S ex:Male Date:02/12/2025 Address:[place], [id number] Subjective: * Chief Complaints: * 1 . 6 Month Check Up. * HPI: C ardiology: 69 year old male presents with c/o Blood Pressure Elevated P t here for 6 mo f/u on hypertension, states he is doing well and does not have any concerns. c/o Hyperlipidemia P t is fasting today. * ROS: D ERMATOLOGY: no R marcelino. n o H citlaly. G ASTROENTEROLOGY: no N ausea. n o V omiting. U ROLOGY: no D ifficulty urinating. n o B lood in urine. * Medical History: D epression, Anxiety, COPD, Abnormal PFT's, 03/2012, Esophageal Reflux, Hyperlipidemia, Erectile Dysfunction, Allergic Rhinitis, Chronic Sinusitis, S/P ENT Evaluation, 50 pack year smoking history as of 2017, Colon Polyps, CVA, left basal ganglia, 2024. * Surgical History: T onsilectomy 2010, Colonoscopy 2018. * Hospitalization/Major Diagno stic Procedure: P neumonia [...] Peeling of skin. Objective: * Vitals: W t:184, Temp:97.8, BP:122/74, HR:88, O2 Sat:93% on RA, Nurse:rashad, Ht: 71.50, BMI:25.30. * Examination: G eneral Examination: General Appearance: N AD, using a c ane to assist with ambulation. H eart: R SR. L ungs: c lear to auscultation. P eripheral pulses:?normal (2+) bilaterally. E xtremities: n o leg edema. Assessment: * Assessment: 1. P ure hypercholesterolemia - E78.00 (Primary) 2 . I FG (impaired fasting glucose) - R73.01 3 . G astroesophageal reflux disease, unspecified whether esophagitis present - K21.9 4 . C hronic obstructive pulmonary disease, unspecified COPD type - J44.9 5 . D epression with anxiety - F41.8 6 . P olyuria - R35.89 7 . P rostate cancer screening - Z12.5 8 .?Microscopic hematuria - R31.29 Plan: * Treatment: Value Reference Range A /G Ratio 1.8 1.1-2.5 - * A lbumin 4.2 3.5-5.3 - g/dL * A lkaline Phosphatase 73 40-129 - IU/L * A LT (SGPT) 16 <5-55 - IU/L * A ST (SGOT) 14 <5-46 - IU/L * B ilirubin, Total 0.6 <0.2-1.2 - mg/dL * B UN 14 8-23 - mg/dL * C alcium 9.9 8.6-10.4 - mg/dL * C hloride 105 97-108 - mmol/L * C O2 24 22-32 - mmol/L * C reatinine 0.89 0.70-1.30 - mg/dL * G lucose 95 65-99 - mg/dL * P otassium 4.7 3.5-5.3 - mmol/L * S odium 140 135-145 - mmol/L * P rotein 6.6 6.0-8.3 - g/dL * e GFR by Creatinine 91 >59 - mL/min/1.73m2 * lGadys Santiago 02/14/2025 11:19 :27 AM >See phone encounter ?LAB: P-Lipid Panel (Collection Date & Time - 02/12/2025 01:34 PM)?chol 221, chol/hdl 5.39, non-hdl 180, ldl 155, ldl/hdl 3.8* Value Reference Range C holesterol / HDL Ratio 5.39 H 0.00-4.99 - Ratio * C holesterol 221 H <200 - mg/dL * H DL Cholesterol 41 >39 - mg/dL * L DL Cholesterol (Calculation) 155 H <130 - mg/d L * L DL/HDL Ratio 3.8 H <3.3 - Ratio * N on-HDL Cholesterol 180 H <130 - mg/dL * T riglycerides 124 <150 - mg/dL * Gladys Santiago 02/14/2025 11:19 :27 AM >See phone encounter ?LAB: P-TSH reflex to FT4 (Collection Date & Time - 02/12/2025 01:34 PM)? Normal* Value Reference Range T SH reflex to FT4 1.31 0.43-5.25 - mU/L * Gladys Santiago 02/14/2025 11:19 :27 AM >See phone encounter 2.?IFG (impaired fasting glucose)?LAB: P-Hemoglobin A1C (Collection Date & Time - 02/12/2025 01:34 PM)?Normal * Value Reference Range H emoglobin A1C 5.4 <5.7 - % * Gladys Santiago 02/14/2025 11:19 :27 AM >See phone encounter ?LAB: Glucose (In-House) (Collection Date & Time - 02/12/2025)?73 Normal* Value Reference Range b lood glucose 73 74 - 106 mg/dL * Indigo Valadez 02/12/2025 3:33:14 PM > Gladys Santiago 02/14/2025 11:19:27 AM >See phone encounter 3.?Gastroesophageal reflux disease, unspecified whether esophagitis present? Continue Lansoprazole Capsule Delayed Release, 30 MG, 1 capsule 1/2 to 1 hour before morning meal, Orally, Once a day.??4.?Chronic obstructive pulmonary disease, unspecified COPD type? Continue ProAir Digihaler Aerosol Powder Breath Activated, 108 (90 Base) MCG/ACT, 2 puff(s), inhaled, 4 times a day as needed.??5.?Polyuria?LAB: Urinalysis - Inhouse (Collection Date & Time - 02/12/2025)* Value Reference Range C olor/Clarity yellow/clear * L euk Neg * N itrite Neg * U robili 33 * P rotein Neg * p H 6.5 * B lood Trace-Lysed * S p. Gr. 1.020 * K etone Neg * B jonathan Neg * Indigo Valadez 02/12/2025 3:33:57 PM > , Provider reviewed results while patient in office. ? Referral To:Thierry Art??Urology ?Reason: 6.?Microscopic hematuria? Referral To:Thierry Art??Urology ?Reason: 7.?Others? Referral To:Thierry Art??Urology ?Reason: * Labs: * L ab: Estimated Average Glucose (Collection Date & Time - 02/12/2025 01:34 PM) N ormal Value Reference Range E stimated Average Glucose 108 - mg/dL * [facility], IT support 02/13/2025 04:20:10 : This order was created by the Interface. Gladys Santiago 02/14/2025 11:19:27 AM >See phone encounter * Procedure Codes: G 2211 Complex e/[place], [address] GLUCOSE TEST, 36259 Urinalysis, no micro, 3044F HG A1C LEVEL LT 7.0%, 3074F SYST BP LT 130 MM HG, 3078F DIAST BP < 80 MM HG * Follow Up: 6 Months * Images: Billing Information: * Visit Code: 47971 Office Visit, Est Pt., Level 4. * Procedure Codes: G2211 Complex e/[place]. [address] GLUCOSE TEST. 13473 Urinalysis, no micro. 3044F HG A1C LEVEL LT 7.0%. 3074F SYST BP LT 130 MM HG. 3078F DIAST BP < 80 MM HG. * Electronic signature of Sadaf Ortega MD on 08/16/2025 at 02:31 PM EDT Sign off status: Pending * Provider: Sudeep Ortega M.D. Date: 0 02/12/2025 Generated for Kashif mack/Ozzy/Chio on: 0 08/16/2025 02:31 PM EDT History and Physical Notes * HPI (History of Present Illness) Category Sub-Category Detail Notes Category Not es Cardiology Blood Pressure Elevated Pt here for 6 mo f/u on hypertension, states he is doing well and does not have any concerns Hyperlipidemia Pt is fasting today Examination Category Sub-Category Detail Notes Category Not es General Examination Heart: RSR Lungs: clear to auscultatio n Extremities: no leg edema General Appearance: NAD, using a cane to assist with ambulation Peripheral pulses: normal (2+) bilatera lly Consultation Request Notes Referral Date Referring Provider Referred Provider Not es 02/12/2025 Marcelino Ortega Kevin
--- OUTSIDE RECORDS SUMMARY | 2025-05-27 07:45 | XMS_ITS ---
Author Organization [facility] Address [address] [place] [id number] Care Team Providers Care Yard Crane Operator Name Role Phone Marcelino Ortega Primary Care Provider [phone] Allergies Allergen (clinical drug ingredient) Drug/Non Drug [...] Interpretation:Normal Performing Lab: Notes/Report: Test performed by [facility] [address] [place], [place] [address] [place] Dony [address]bron C, [place] [address] Montez Martinez MD, Lusterer CLIA: [id number] Vitamin B12 9733 705-6625 pg/mL P-Comprehensive Metabolic Pa marivel (CMP) Reviewed date:06/01/2025 09:41:24 AM Interpretation:Glu 125 Performing Lab: Notes/Report: Test performed by [facility] [address] [place] [address] [place] [address] Montez Martinez MD, Lusterer CLIA: [id number] Sodium 143 135-145 mmol/L Potassium 4.0 3.5-5.3 [...] Interpretation:Normal Performing Lab: Notes/Report: Test performed by [facility] [address] [place] [address] , [place] [address] Montez Martinez MD, Lusterer CLIA: [id number] TSH reflex to FT4 0.96 0.43-5.25 mU/L P-Vitamin D 25-Hydroxy Reviewed date:06/01/2025 09:41:24 AM Interpretation:12.6 Performing Lab: Notes/Report: Test performed by [facility] [address] [place] [address] , [place] [id number] Montez Martinez MD, Lusterer CLIA: [id number] Vitamin D 25-Hydroxy 12.6 30.0-100.0 ng/mL Interpretation [...] Status Risk Notes Problem Hesitancy of micturition (7459611) Hesitancy of micturition (R39.11) Active confirmed Problem Lower urinary tract symptoms due to benign prostatic hypertrophy (52893466615786) Benign prostatic hyperplasia with lower urinary tract symptoms (N40.1) Active confirmed Vital Signs Blood pressure systolic 130 mm Hg 05/27/20 25 Blood pressure diastolic 72 mm Hg 025 Heart Rate 89 /min 05/27/2025 Height 71.50 in 05/27/2025 Weight 179.2 lbs 05/27/2025 BMI 24.64 kg/m2 05/27/2025 Encounters Encounter Location Date Provider Diagnosis [facility] [address] [place] [phone] 05/27/2025 Marcelino Wadsworth Intermittent vertigo R42 ; Hesitancy of micturition [...] [address], [place], [place], [id number], Progress Notes * Richard AVILA ADOB:[birth year] (69 yo M)Acc No.[id number]:05/27/2025 Progress Notes Patient: Richard PEREZ Provider: Sudeep Ortega M.D. :1955 A ge:69 Y S ex:Male Date:05/27/2025 Address:[address] [place], [place] [id number] Subjective: * Chief Complaints: * 1 . [...] ERMATOLOGY: no R marcelino. n o H ictlaly. G ASTROENTEROLOGY: no N ausea. n o [...] with anxiety - F41.8 7 . B [place] 24.0-24.9, adult - Z68.24 ? Plan: * [...] ormal Value Reference Range V itamin B12 1867 781-9273 - pg/mL * Delia Sahu 06/01/2025 09: [...] by Creatinine 84 >59 - mL/min/1.73m2 * [facility], IT support 05/31/2025 04:05:05 : This order was created by the Interface. Delia Sahu 06/01/2025 09:41:09 AM EDT > See phone encounter * Procedure Codes: G 2211 Complex e/[place], [address] CBC WITH AUTO DIFF, G8420 BMI<30 AND >=22 CALC & DOCU, G8783 BP SCR PRFRM RCMDD DEFIND SCR INTVL, G8752 MOST RECENT SYSTOLIC BP < 140MM HG, G8754 MOST RECENT DIASTOLIC BP < 90MM HG * Follow Up: v ia phone to report test results * Images: Billing Information: * Visit Code: 38624 Office Visit, Est Pt., Level 4. * Procedure Codes: G2211 Complex e/[place]. [address] CBC WITH AUTO DIFF. G8420 BMI<30 AND [...] 0 05/27/2025 Generated for Kashif mack/Ozzy/Chio on: 0 08/16/2025 [...]
--- OUTSIDE RECORDS SUMMARY | 2025-05-31 10:15 | XMS_ITS ---
Author Organization [facility] Address [address]10 [facility] 36 [facility] [address] [place] [phone] Care Team Providers Care Engineering Illustrator Name Role Phone Marcelino Ortega Primary Care Provider REASON FOR VISIT stool sample Encounters Encounter Location Date Provider Diagnosis [facility] 36 [facility] [address] [place] [phone] 05/31/2025 Marcelino Ortega Plan Of Treatment Next Appt Details Provider Name:Marcelino Kc ry, 09/27/2025 01:45:00 PM, [facility] 36 [facility], [address], [place], [phone], Progress Notes * Richard AVILA ADOB:[birth year] (69 yo M)Acc No.[id number]:05/31/2025 Patient: Richard PEREZ Provider: Sudeep Ortega M.D. [...] 0 05/31/2025 Generated for Kashif mack/Ozzy/Chio on: 0 08/16/2025 02:30 PM EDT
--- NOTE | 2025-08-16 14:28 | XR_ITS ---
FINAL REPORT TECHNIQUE: 5 views CLINICAL HISTORY: RT-SIDE LBP W/ SCIATICA FINDINGS: There is no fracture present. There is no malalignment. There is advanced disc space narrowing at L5-S1. Prominent facet sclerosis is seen at L5-S1. There are mild to moderate hypertrophic changes of degenerative disc disease throughout the lumbar spine. IMPRESSION: Multilevel degenerative disc disease. Reviewed, Interpreted and Dictated by Rad Blount MD Transcribed by Odilia Cordon Authenticated and . [facility]
--- OUTSIDE RECORDS SUMMARY | 2025-08-16 14:31 | XMS_ITS | Patient Health Record ---
Author Organization [facility] Address [address] [place] [id number] Care Team Providers Care Global Upstream Marketing Manager Name Role Phone Marcelino Ortega Primary Care Provider [phone] Allergies Allergen (clinical drug ingredient) Drug/Non Drug Allergy documented on EMR Reaction Allergy Type Onset Date Status Penicillin Peeling of skin Drug Allergy Active Results Component Value Reference Range Notes P-Vitamin D 25-Hydroxy Reviewed date:06/01/2025 09:41:24 AM Interpretation:12.6 Performing Lab: Notes/Report: Test performed by [facility] [address] [place], [place] [address] [address] [address] , [place] [address] Montez Martinez MD, Creative Producer CLIA: [id number] Vitamin D 25-Hydroxy 12.6 30.0-100.0 ng/mL Interpretation of Vitamin D 25 OH: < 20 ng/mL - Deficiency 20 - 29 ng/mL - Insufficiency 30 - 100 ng/mL - Sufficiency > 100 ng/mL - Super-therapeutic- toxicity may occur above this level. Clinical correlation required. P-TSH reflex to FT4 Reviewed date:06/01/2025 09:41:24 AM Interpretation:Normal Performing Lab: Notes/Report: Test performed by [facility] [address] [place], [place] [address] [employer] [address] [place] C, [place] [address] Montez Martinez MD, Creative Producer CLIA: [id number] TSH reflex to FT4 0.96 0.43-5.25 mU/L P-Comprehensive Metabolic Pa marivel (CMP) Reviewed date:06/01/2025 09:41:24 AM Interpretation:Glu 125 Performing Lab: Notes/Report: Test performed by [facility] [address] [place] [address] , [address], [place] [address] Montez Martinez MD, Creative Producer CLIA: [id number] Sodium 143 135-145 mmol/L Potassium 4.0 3.5-5.3 [...] 0.5 <0.2-1.2 mg/dL A/G Ratio 1.9 1.1-2.5 P-Vitamin B12 Reviewed date:06/01/2025 09:41:24 AM Interpretation:Normal Performing Lab: Notes/Report: Test performed by [facility] [address] [place] [address] , [address], [place] [address] Montez Martinez MD, Creative Producer CLIA: [id number] Vitamin B12 0917 364-4778 pg/mL CBC Venipuncture (in house) Reviewed date:05/27/2025 09:18:14 [...] - 38 platlet 185 100 - 400 CT Scan : Chest, low dose Reviewed date:08/24/2024 08:39:45 AM Interpretation:advanced changes centrolobular emphysema, benign hepatic cyst Performing Lab: Notes/Report: advanced changes centrolobular emphysema, benign hepatic cyst Estimated Average Glucose Reviewed date:02/14/2025 11:19:38 AM Interpretation: Normal Performing Lab: Notes/Report: Test performed by [facility] [address] [place] [address] Montez Martinez MD, Creative Producer CLIA: [id number] Estimated Average Glucose (eAG) 108 Estimated Average Glucose (eAG) is calculated using the equation eAG = (28.7 x HbA1c) - 46.7 based on the guidelines established by the ADA. If the patient has certain diseases including kidney disease, sickle cell anemia, thalassemia, or is taking medications such as dapsone, erythropoietin, or iron, eAG should not be evaluated. P-TSH reflex to FT4 Reviewed date:02/14/2025 11:19:38 AM Interpretation: Normal Performing Lab: Notes/Report: Test performed by [facility] [address] [place] [address] [place] [address] Montez Martinez MD, Creative Producer CLIA: [id number] TSH reflex to FT4 1.31 0.43-5.25 mU/L P-Lipid Panel Reviewed date:02/14/2025 11:19:38 AM Interpretation:chol 221, chol/hdl 5.39, non-hdl 180, ldl 155, ldl/hdl 3.8 Performing Lab: Notes/Report: Test performed by [facility] [address] [place] [address] [place] [address] Montez Martinez MD, Creative Producer CLIA: [id number] Cholesterol 221 <200 mg/dL Triglycerides 124 <150 [...] Results: 155 Units: mg/dL % Change: +9% P-Hemoglobin A1C Reviewed date:02/14/2025 11:19:38 AM Interpretation: Normal Performing Lab: Notes/Report: Test performed by [facility] [address] [place], [place] [address] , [address], [place] [address] Montez Martinez MD, Creative Producer CLIA: [id number] Hemoglobin A1C 5.4 <5.7 % The following HbA1c ranges recommended by the [place] [employer] (ADA) may be used as an aid in the diagnosis of diabetes mellitus. HbA1c Suggested Diagnosis >=6.5% Diabetic 5.7% - 6.4% Pre-Diabetic <5.7% Non-Diabetic P-Comprehensive Metabolic Pa marivel (CMP) Reviewed date:02/14/2025 11:19:38 AM Interpretation: Normal Performing Lab: Notes/Report: Test performed by [facility] [address] [facility] , [address], [place] [address] Montez Martinez MD, Creative Producer CLIA: [id number] Sodium 140 135-145 mmol/L Potassium 4.7 3.5-5.3 [...] 0.6 <0.2-1.2 mg/dL A/G Ratio 1.8 1.1-2.5 Glucose (In-House) Reviewed date:02/14/2025 11:19:38 AM Interpretation:73 Normal Performing Lab: Notes/Report: 73 Normal blood glucose 73 74 - 106 mg/dL Urinalysis - Inhouse Reviewed date:02/12/2025 05:21:29 PM Interpretation: Performing Lab: Notes/Report: Color/Clarity yellow/clear Leuk Neg Nitrite Neg Urobili 33 Protein Neg pH 6.5 Blood Trace-Lysed Sp. Gr. 1.020 Ketone Neg Bili Neg Echocardiogram Reviewed date:12/10/2024 09:04:14 AM Interpretation:Normal Performing Lab: Notes/Report: Normal CBC Fingerstick (in house) Reviewed date:11/27/2024 12:44:27 PM Interpretation: Performing Lab: Notes/Report: wbc 9.1 3.5 - 10 lym 20.0% 15 - 50 mid 5.8% 2 - 15 gran 74.2% 35 - 80 rbc 5.26 3.5 - 5.5 hgb 16.4 11.5 - 16.5 hct 47.4 35 - 55 mcv 90.2 75 - 100 mch 31.3 25 - 35 mchc 34.6 31 - 38 plat 175 100 - 400 Reason For Referral Reason [facility] ator Diagnosis 1 Ataxia (R27.0) Diagnosis 2 Right sided weakness (R53.1) Diagnosis 3 Left basal ganglia e mbolic stroke (I63.9) [facility] Referring Provider First Name Marcelino Referring Provider Last Name Shannon Referring Provider [facility] ctice Referred Provider [facility], . Referred Provider Specialty Home Health Agency General Notes Gladys Santiago 11/27/19 1:17:10 PM > referral faxed to [facility] NavigHarinder dailey Shannon 12/01/2024 10:08:08 AM > [facility] called and said [facility] closest to them for Home Therapy, unlimited home visits for 28hrs per week. Medical Equipment and supplies included. Fax order to [phone] the provider number is . Jack Julia 12/01/2024 1:25:14 PM > Referral faxed to [facility] Julia 12/01/2024 4:46:45 PM > Referral refaxedJack Julia 12/02/2024 9:54:31 AM > [facility] [place] 12/03/2024 3:18:10 PM > Referrral faxed to [facility] Referral Priority Routine Reason patient needs pulmon jason rehab Diagnosis 1 Right sided weakness (R53.1) Diagnosis 2 Acute stroke of basa l ganglia (I63.9) [facility] Referring Provider First Name Marcelino Referring Provider Last Name Shannon Referring Provider [facility] ctice General Notes Liss Wade 2024 01:49:02 PM > faxed to pulmonary rehab Referral Priority Routine Diagnosis 1 Microscopic hematuri a (R31.29) Diagnosis 2 Polyuria (R35.89) Diagnosis 3 Urinary hesitancy (R 39.11) Referral Organization [facility] Referring Provider First Name Marcelino Referring Provider Last Name Shannon Referring Provider [facility] ctice Referred Provider Thierry Copeland Referred Provider Specialty Urology General Notes Liss Wade 02/16/20 1:52:28 PM > faxed to Dr. Art's office Referral Priority Routine Reason [facility] Diagnosis 1 Right-sided low back pain with right-sided sciatica, unspecified chronicity (M54.41) Referral Organization [facility] Referring Provider First Name Marcelino Referring Provider Last Name Shannon Referring Provider Speciality Family Pra jaredice Referred Provider Physical Therapy, . Referred Provider Specialty Physical The rapist General Notes Liss Wade 2024 02:01:07 PM > faxed to [facility] PT Referral Priority Routine Medications Medication SIG (Take, Route, Frequency, Duration) [...] orally once daily as needed 05/15/2021 Active Nicotine 21 MG/24HR 1 patch to skin Transdermal Once a day Active Vitamin D3 1.25 MG (72499 UT) 1 capsule Orally weekly 06/01/2025 Acti ve Lansoprazole 30 MG 1 capsule Orally Onc e a day; Duration: 90 days Active Meclizine HCl 25 MG 1 tablet as needed O rally every 12 hrs 05/27/2025 Active Silodosin 8 MG 1 capsule with a cristal l Orally Once a day Active Aspirin 81 MG 1 tablet Orally Once a day; Duration: 90 days Active FLUoxetine HCl 40 MG 1 capsule Orally On ce a day; Duration: 90 days Active Immunizations Vaccine Route Administration Date Status Comme nts COVID 19 Pfizer Unknown 05/03/2021 Administered Fluzone High Dose (65yr and older) IM Intramuscular 08/31/2020 Administered Fluzone High Dose (65yr and older) IM Intramuscular 08/15/2021 Administered Fluzone High Dose (65yr and older) IM Intramuscular 08/14/2022 Administered Fluzone High Dose (65yr and older) IM Intramuscular 08/12/2023 Administered Fluzone High Dose (65yr and older) IM Intramuscular 08/17/2024 Administered Fluzone High Dose (65yr and older) IM Intramuscular 08/16/2025 Administered PNEUMOVAX 23 VACCINE IM Intramuscular 08/15/2021 Administe red Prevnar (PCV20) IM Intramuscular 08/14/2022 Administered Problems Problem Type SNOMED Code ICD Code Onset Dates Problem Status W/U Status Risk Notes Problem Vitamin D deficiency (41573396) Vitamin D deficiency (E55.9) Active confirmed Problem Mixed anxiety and depressive disorder (212286002) Depression with anxiety (F41.8) Active confirmed Problem Acute exacerbation o f chronic obstructive airways disease (612271435) COPD exacerbation (J44.1) Active confirmed Problem Hemiplegia of dominant side as late effect of cerebrovascular disease (443307134) 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) Active confirmed Problem Chronic maxillary sinusitis (23628385) Chronic maxillary sinusitis (J32.0) Active confirmed Problem Hesitancy of micturition (6175663) Hesitancy of micturition (R39.11) Active confirmed Problem History of polyp of colon (situation) (135353938) History of colon polyps (Z86.010) Active confirmed Problem Urinary hesitancy (0870139) Urinary hesitancy (R39.11) Active confirmed Problem COPD - Chronic obstructive pulmonary disease (75967040) Chronic obstructive pulmonary disease, unspecified COPD type (J44.9) Active confirmed Problem Gastroesophageal reflux disease (281540670) Gastroesophageal reflux disease, esophagitis presence not specified (K21.9) Active confirmed Problem Erectile dysfunction (disorder) (745153290) Erectile dysfunction, unspecified erectile dysfunction type (N52.9) Active confirmed Problem Cerebral infarction (812325117) Acute CVA (cerebrovascular accident) (I63.9) Active confirmed Problem Cigarette smoker (53445148) Cigarette smoker (F17.210) Active confirmed Problem Impaired fasting glycaemia (941088794) IFG (impaired fasting glucose) (R73.01) Active confirmed Problem Allergic rhinitis (03511308) Allergic rhinitis, unspecified allergic rhinitis trigger, unspecified rhinitis seasonality (J30.9) Active confirmed Problem Pure hypercholesterolemia (998576947) Pure hypercholesterolemia (E78.00) Active confirmed Problem Lower urinary tract symptoms due to benign prostatic hypertrophy (97747039286120) Benign prostatic hyperplasia with lower urinary tract symptoms (N40.1) Active confirmed Problem Sciatica (06041623) Right-sided low back pain with right-sided sciatica, unspecified chronicity (M54.41) Active confirmed Problem Hearing loss (10327832) Hearing loss of left ear, unspecified hearing loss type (H91.92) Active confirmed Problem Gastroesophageal reflux disease (497597477) Gastroesophageal reflux disease, unspecified whether esophagitis present (K21.9) Active confirmed Problem Cerebral infarction (146494500) Left basal ganglia embolic stroke (I63.9) Active confirmed Vital Signs Heart Rate 75 /min 08/16/2025 Blood pressure diastolic 72 mm Hg 08/16/2025 Height 71.50 in 08/16/2025 Blood pressure systolic 130 mm Hg 08/16/2025 Weight 181.8 lbs 08/16/2025 BMI 25 kg/m2 08/16/2025 Encounters Encounter Location Date Provider [facility] [place] [id number] 08/17/2024 Marcelino Axtell Chronic obstructive pulmonary disease, unspecified COPD type J44.9 ; Screening for lung cancer Z12.2 and Personal history of nicotine dependence Z87.891 [facility] [place] [id number] 11/27/2024 Marcelino Axtell Left basal ganglia e mbolic stroke I63.9 ; Right sided weakness R53.1 ; Ataxia R27.0 ; Acute diarrhea R19.7 ; Excessive wax in right ear H61.21 and Chronic obstructive pulmonary disease, unspecified COPD type J44.9 [facility] [address] [place] [address] [place] [id number] 12/25/2024 Marcelino Axtell Right sided weakness R53.1 and Acute stroke of basal ganglia I63.9 [facility] [place] [id number] 02/12/2025 Marcelino Axtell Pure hypercholestero lemia E78.00 ; IFG (impaired fasting glucose) R73.01 ; Gastroesophageal reflux disease, unspecified whether esophagitis present K21.9 ; Chronic obstructive pulmonary disease, unspecified COPD type J44.9 ; Depression with anxiety F41.8 ; Polyuria R35.89 ; Prostate cancer screening Z12.5 and Microscopic hematuria R31.29 [facility] [place] [id number] 05/27/2025 Marcelino Axtell Intermittent vertigo R42 ; Hesitancy of micturition R39.11 ; Benign prostatic hyperplasia with lower urinary tract symptoms N40.1 ; Fatigue, unspecified type R53.83 ; Hemiplegia and hemiparesis following cerebral infarction affecting right dominant side I69.351 ; Depression with anxiety F41.8 and BMI 24.0-24.9, adult Z68.24 [facility] [address] [facility] [address] [place], [place] [id number] 05/31/2025 Marcelino Axtell [facility] [address] [facility] [address] [place], [place] [id number] 08/16/2025 Marcelino Axtell Right-sided low back pain with right-sided sciatica, unspecified chronicity M54.41 ; Cigarette smoker F17.210 ; Pain in mouth K13.79 ; Vitamin D deficiency E55.9 ; Screening for lung cancer Z12.2 ; Personal history of nicotine dependence Z87.891 ; Encounter for immunization Z23 ; oil heaterman use of drug Z79.899 and Pure hypercholesterolemia E78.00 [facility] [address] [facility] [address] [place], [place] [id number] 08/24/2024 Marcelino Axtell [facility] [address] [facility] [address] [place], [place] [id number] 11/24/2024 Marcelino Axtell Acute CVA (cerebrova scular accident) I63.9 [facility] [address] [facility] [address] [place], [place] [id number] 11/24/2024 Marcelino Axtell [facility] [address] [facility] [address] [place], [place] [id number] 11/27/2024 Marcelino Axtell [facility] [address] [place], [place] [id number] 12/08/2024 Marcelino Axtell Pure hypercholestero lemia E78.00 [facility] [address] [place], [place] [id number] 12/09/2024 Marcelino Axtell [facility] [address] [facility] [address] [place], [place] [id number] 12/11/2024 Marcelino Axtell [facility] [address] [place], [place] [id number] 12/15/2024 Marcelino Axtell Hemiplegia and hemip aresis following cerebral infarction affecting right dominant side I69.351 [facility] [address] [place], [place] [id number] 12/21/2024 Marcelino Axtell [facility] [address] [place], [place] [id number] 12/22/2024 Marcelino Axtell [facility] [address] [place] [id number] 02/03/2025 Marcelino Axtell [facility] [address] [place] [id number] 02/14/2025 Marcelino Axtell [facility] [address] [place], [place] [id number] 02/15/2025 Marcelino Axtell [facility] [address] [place], [place] [id number] 05/03/2025 Marcelino Axtell Acute stroke of basa l ganglia I63.9 [facility] [address] [place], [place] [id number] 06/01/2025 Marcelino Axtell [facility] [address] [place], [place] [id number] 06/14/2025 Marcelino Axtell Assessments Encounter Date Diagnosis (ICD Code) Assessment Notes Treatment Notes Treatment Clinical Notes Section Notes 08/17/2024 Chronic obstructive pulmonary disease, unspecified COPD type (ICD-10 - J44.9) 08/17/2024 Screening for lung cancer (ICD-10 - Z12.2) 11/24/2024 Acute CVA (cerebrovascular accident) (ICD-10 - I63.9) 11/27/2024 Right sided weakness (ICD-10 - R53.1) 11/27/2024 Left basal ganglia embolic stroke (ICD-10 - I63.9) 12/08/2024 Pure hypercholesterolemia (ICD-10 - E78.00) 12/15/2024 Hemiplegia and hemiparesis following cerebral infarction affecting right dominant side (ICD-10 - I69.351) 12/25/2024 Right sided weakness (ICD-10 - R53.1) Improved 12/25/2024 Acute stroke of basa l ganglia (ICD-10 - I63.9) 02/12/2025 IFG (impaired fastin g glucose) (ICD-10 - R73.01) 02/12/2025 Pure hypercholesterolemia (ICD-10 - E78.00) 05/03/2025 Acute stroke of basa l ganglia (ICD-10 - I63.9) 05/27/2025 Hesitancy of micturition (ICD-10 - R39.11) 05/27/2025 Intermittent vertigo (ICD-10 - R42) 08/16/2025 Cigarette smoker (ICD-10 - F17.210) 08/16/2025 Right-sided low back pain with right-sided sciatica, unspecified chronicity (ICD-10 - M54.41) 08/16/2025 Pain in mouth (ICD-1 0 - K13.79) 05/27/2025 Benign prostatic hyperplasia with lower urinary tract symptoms (ICD-10 - N40.1) 02/12/2025 Gastroesophageal ref lux disease, unspecified whether esophagitis present (ICD-10 - K21.9) 11/27/2024 Ataxia (ICD-10 - R27.0) 08/17/2024 Personal history of nicotine dependence (ICD-10 - Z87.891) 11/27/2024 Acute diarrhea (ICD- 10 - R19.7) Will hold Lipitor for a few days and stacey with a progress report 05/27/2025 Fatigue, unspecified type (ICD-10 - R53.83) 02/12/2025 Chronic obstructive pulmonary disease, unspecified COPD type (ICD-10 - J44.9) 08/16/2025 Vitamin D deficiency (ICD-10 - E55.9) 05/27/2025 Hemiplegia and hemiparesis following cerebral infarction affecting right dominant side (ICD-10 - I69.351) 08/16/2025 Screening for lung cancer (ICD-10 - Z12.2) 02/12/2025 Depression with anxi ety (ICD-10 - F41.8) 11/27/2024 Excessive wax in rig ht ear (ICD-10 - H61.21) 11/27/2024 Chronic obstructive pulmonary disease, unspecified COPD type (ICD-10 - J44.9) 02/12/2025 Polyuria (ICD-10 - R35.89) 05/27/2025 Depression with anxi ety (ICD-10 - F41.8) 08/16/2025 Personal history of nicotine dependence (ICD-10 - Z87.891) 08/16/2025 Encounter for immunization (ICD-10 - Z23) 05/27/2025 BMI 24.0-24.9, adult (ICD-10 - Z68.24) 02/12/2025 Prostate cancer screening (ICD-10 - Z12.5) 02/12/2025 Microscopic hematuri a (ICD-10 - R31.29) 08/16/2025 penitentiary use of liane g (ICD-10 - Z79.899) 08/16/2025 Pure hypercholesterolemia (ICD-10 - E78.00) 11/27/2024 Other Discharge summary with available lab/diagnostic imaging results obtained and reviewed. Discharge medication list reconciled. Appropriate counseling provided. Moderate Complexity Plan Of Treatment Pending Test Test Name Order Date X ray : Spine, lumbosacral 08/16/2025 CT Scan : Chest, low dose 08/16/2025 P-Comprehensive Metabolic Panel (CMP) P-Lipid Panel 08/16/2025 P-PSA 08/12/2023 P-Vitamin D 25-Hydroxy 08/16/2025 P-Comprehensive Panel, GI by PCR 025 Next Appt Details Provider Name:Marcelino Kc ry, 09/27/2025 01:45:00 PM, [address], [place], [place], [id number], Insurance Providers Payer Name Payer Address Payer Phone Subscriber Number Group Number Insured Name Patient Relationship to Insured Coverage Start Date Coverage End Date [employer] (MEDICARE) [address] [address] [place] [phone] [id number] Copp[employer] Richard Self - patient is the insured MEDICARE PART B [address] [address] [place] [phone] [id number] CoppageRichard Self - patient is the insured Medical (General) History Medical History History ICD Code Depression Anxiety COPD, Abnormal PFT's, 03/2012 Esophageal Reflux Hyperlipidemia Erectile Dysfunction Allergic Rhinitis Chronic Sinusitis, S/P ENT Evaluation 50 pack year smoking history as of 2017 Colon Polyps CVA, left basal ganglia, 2024 Surgical History Surgery Date(Month/Year) Tonsilectomy 2010 Colonoscopy 2018 Hospitalization History Reason Date(Month/Year) Pneumonia 2005
== END 2025-08-16 23:59 | disposition home or self-care (01) ==
LOC: RAD 14:26
PROVIDERS: PCP Family Medicine; Visit Provider Family Medicine
DX: M51.16 Intervertebral disc disorders with radiculopathy, lumbar region (principal)
CPT/HCPCS: 72110

== ENCOUNTER 2025-08-17 14:49 | Outpatient (RCR) | payer MEDICARE, SELFPAY ==
--- NOTE | 2025-08-17 15:52 | HMH.PTOPEV ---
PT Evaluation Rehab PT Outpatient Evaluation Start: 08/17/25 14:59 Freq: Status: Active Protocol: Document 08/17/25 14:59 CHARU (Rec: 08/17/25 15:51 CHARU [id number]) E-signed By Niya Riggs, PT Outpatient Therapy Subjective History Subjective History Pt is a 69 y/o male who reports chronic right-sided low back pain with insidious onset >1 year ago. Pt reports onset of intermittent shooting pain down the right> left leg that extends to the right calf. Pt denies more distal symptoms, paresthesia or b/b dysfunction. Pt reports pain is worse in the morning and aggravated by prolonged standing, walking, bending, and lifting. Pt reports he suffered a stroke in November resulting in right leg weakness and difficulty picking up his right foot when walking. Pt denies having a AFO. Pt denies recent falls but states he has fallen once since having the stroke. Pt denies serious injuries from the fall. Pt had a lumbar spine radiograph on 08/16/25 with findings of There is advanced disc space narrowing at L5-S1. Prominent facet sclerosis is seen at L5-S1. There are mild to moderate hypertrophic changes of degenerative disc disease throughout the lumbar spine. Pt reports he returns to his doctor in 6 weeks for a follow-up visit. Medical History: COPD New diagnosis of No cancer in past 12 months? Chief Complaint Pain,Gives out/Unstable Symptom Type Sharp,Shooting Symptoms Relieved By Rest/Positioning Symptoms Aggravated Sitting,Standing By Current Functional Lifting,Housework,Standing,Sitting,Squatting,Walking, Limitations Stairs,Bending/Stooping Symptom Description Constant but Variable Level of pain today 3 (0-10) Pain scale - at its 3 best (0-10) Pain scale - at its 8 worst (0-10) Lumbopelvic Eval Posture Lumbar Spine Posture Decreased Lordosis Standing Position Assistive device Assistive Devices None / NA Palapation tenderness bilateral paraspinal Yes: R tenderness buttock tenderness Yes: R piriformis Lumbar/Sacral Tenderness Palpation Findings Lumbar/Sacral 2/4 TTP Palpation Overall Comment Accessory Movement L-spine Vertebrae Central P/A [place] Accessory Movements that Elicit Symptoms L3 bilateral L4 bilateral L5 bilateral S1 bilateral Range of Motion Lumbar Spine Active 50 Flexion Range of Motion (degrees) Lumbar Spine Active 10 Extension Range of Motion (degrees) Left Lumbar Spine 10 Lateral Flexion Active Range of Motion (degrees) Right Lumbar Spine 10 Lateral Flexion Active Range of Motion (degrees) Manual Muscle Test Right Knee Extension 4 Good Strength Grade Knee Flexion 4 Good Strength Grade Hip Flexion Strength 4- Good- Grade Hip Abduction 4- Good- Strength Grade Hip Adduction 4- Good- Strength Grade Hip Extension 4- Good- Strength Grade Ankle Dorsiflexion 4 Good Strength Grade DTR Rt Patellar 3+ Lt Patellar 2+ Altered Sensation Bilateral LE Dermatome Level L5 Comment decreased light touch R compared to left Special Tests Unilateral Straight Positive Right Leg Raise (Lasegue) Test Balance Eval Gait/Posture Asssessment Assistive Devices None / NA Hip Observation in Decreased Flexion,Circumducted Gait Swing Ankle/Foot Decreased Foot Clearance Observation in Gait Swing Hip Posture Standing (R) Externally Rotated Position Body Alignment Rigid Posture Oswestry Index Section 1 Pain Intensity The pain comes and goes and is severe Section 2 Personal Care ( my way of washing or dressing even though it causes Washing,Dresing) some pain Section 3 Lifting I can only lift very light weights at most Section 4 Walking I cannot walk at all without increasing pain Section 5 Sitting I can sit in any chair for as long as I like Section 6 Standing I have some pain on standing, but it does not increase with time Section 7 Sleeping Because of my pain, my normal night's sleep is less than 6 hours sleep Section 8 Social Life My social life is normal and gives me no extra pain Section 9 Traveling I get some pain when traveling, but none of my usual forms of travel m Section 10 Changing Degreee of My pain is gradually getting worse Pain Score and Risk Level Oswestry Score 23 Oswestry Risk Level Moderate Disability Outpatient Therapy Assessment Impairments Problems/ Palpation Tenderness,Impaired Range of Motion,Impaired Impairmments Strength,Impaired Walking,Impaired Standing,Impaired Sitting,Impaired Lifting,Impaired Household Care, Impaired Bending,Subjective C/O Pain,Impaired Self Care /Self Management Prognosis Rehab Potential Good PT Patient Goals PT Patient Goals PT Short Term 3 weeks: Patient Goals 1. Verbalize compliance with HEP to assist with overall progress. 2. Improve lumbar flexion AROM to 60 to assist with function and mobility. 3. Improve pain at worst to 6/10 on VAS to improve overall QOL/function. PT [employer] Patient 6 weeks: Goals 1. Improve tenderness to palpation of lumbar spine to 0 -1/4 to assist with pain. 2. Improve lumbar AROM flex to 70, ext & LF to 15 to assist with mobility and function. 3. Improve RLE MMT to 4+/5 grossly to assist with function. 4. Demonstrate improved gait mechanics either with or without orthotics to decrease fall risk. 5. Improve pain at worst to 4/10 on VAS to improve overall QOL/function. 6. Improve ESTER score to 18 or less to improve overall QOL/function. Outpatient Therapy Plan of Care Treatment Plan May Include Therapeutic Exercise Yes Including Home Exercise Program Manual Therapy Yes Techniques Neuromuscular Re- Yes education Therapeutic Yes Activities to Return to Previous Functional/Work Level ADL/Self Care Yes Education Mechanical Traction Yes Dry Needling Yes Thermal Modalities Yes Electrical Yes Stimulation Ultrasound/ Yes Phonophoresis Iontophoresis Yes Massage Yes Group Therapy for Yes Medicare Eval/Re-Eval Yes Frequency Times per week 2 Duration Number of Weeks 4-6 Addendums This patient is a No candidate for social or vocational rehab ? Patient/Guardian Yes verbally acknowledges understanding of treatment program and consents to further treatment? Patient/Guardian Yes verbally acknowledges understanding of diagnosis, prognosis and goals for treatment? Eval Complexity PT Charges 29829 - Low Complexity Shoulder/Elbow Eval Shoulder Objective Measurements Elbow Objective Measurements PHYSICIAN CERTIFICATION: I certify the specified therapy services for Richard Avila are required, authorized, and reviewed every 30 days.
== END 2025-08-17 23:59 | disposition home or self-care (01) ==
LOC: PT 14:49
PROVIDERS: Visit Provider Family Medicine
DX: M54.41 Lumbago with sciatica, right side (principal)
CPT/HCPCS: 97161

== ENCOUNTER 2025-08-23 14:41 | Outpatient (CLI) | payer MEDICARE, SELFPAY ==
--- OUTSIDE RECORDS SUMMARY | 2024-12-25 07:00 | XMS_ITS ---
Author Organization [facility] Address [address] [facility] [address] [place] [phone] Care Team Providers Care Healthcare Applications Analyst Name Role Phone Marcelino Ortega Primary Care [...] Encounter Location Date Provider Diagnosis [facility] [address] [facility] [address] [facility] [address] [place] [phone] 12/25/2024 Marcelino Ortega Right sided weakness R53.1 [...] Name:Marcelino Kc ry, 09/27/2025 01:45:00 PM, [address] [facility] [address] [facility], [address], [place], [phone], Progress Notes * Richard AVILA ADOB:[birth year] (69 yo M)Acc No.[id number]:12/25/2024 Progress Notes Patient: Richard PEREZ Provider: Sudeep Ortega M.D. :1955 A ge:69 Y S ex:Male Date:12/25/2024 Address:[address] [place] [address], [place], [id number] Subjective: * Chief Complaints: * 1 . [...] * Images: Billing Information: * Visit Code: 68122 Office Visit, Est Pt., Level 3. * Procedure Codes: G2211 Complex e/m visit add on. 3074F SYST BP LT 130 MM HG. 3078F DIAST BP < 80 MM HG. * Electronic signature of Sadaf Ortega MD on 08/23/2025 at 02:43 PM EDT Sign off status: Pending * Provider: Sudeep Ortega M.D. Date: 0 12/25/2024 Generated for Kashif mack/Ozzy/Nichelleitting on: 1 02:43 PM EDT History and Physical Notes * [...]
--- OUTSIDE RECORDS SUMMARY | 2025-02-12 09:30 | XMS_ITS ---
Author Organization [facility] Address [address] [place] [id number] Care Team Providers Care School Photographs Detailer Name Role Phone Marcelino Ortega Primary Care [...] - 106 mg/dL P-Comprehensive Metabolic Pa marivel ([facility]) Reviewed date:02/14/2025 11:19:38 AM Interpretation: Normal Performing Lab: Notes/Report: Test performed by [facility] [address] [place] [address] , [address], [place] [address] Montez Martinez MD, Paper Deliverer CLIA: [id number] Sodium 140 135-145 mmol/L Potassium 4.7 3.5-5.3 [...] Normal Performing Lab: Notes/Report: Test performed by [facility] [address] [place] [address] [address] , [place] [address] Montez Martinez MD, Paper Deliverer CLIA: [id number] Hemoglobin A1C 5.4 <5.7 % The following HbA1c ranges recommended by the [place] [employer] (ADA) may be used as an aid in the diagnosis of diabetes mellitus. HbA1c Suggested Diagnosis >=6.5% Diabetic 5.7% - 6.4% Pre-Diabetic <5.7% Non-Diabetic P-Lipid Panel Reviewed date:02/14/2025 11:19:38 AM Interpretation:chol 221, chol/hdl 5.39, non-hdl 180, ldl 155, ldl/hdl 3.8 Performing Lab: Notes/Report: Test performed by [facility] [address] [place] [address] [address] , [place] [address] Montez Martinez MD, Paper Deliverer CLIA: [id number] Cholesterol 221 <200 mg/dL Triglycerides 124 <150 [...] Normal Performing Lab: Notes/Report: Test performed by [facility] [address] [place], [place] [address] [place] [address] Montez Martinez MD, Paper Deliverer CLIA: [id number] TSH reflex to FT4 1.31 0.43-5.25 mU/L Estimated Average Glucose Reviewed date:02/14/2025 11:19:38 AM Interpretation: Normal Performing Lab: Notes/Report: Test performed by [facility] [address] [place], [place] [address] [place] [address] Montez Martinez MD, Paper Deliverer CLIA: [id number] Estimated Average Glucose (eAG) 108 Estimated Average [...] Last Name Shannon Referring [facility] Referred Provider Thierry Copeland Referred Provider Specialty [...] W/U Status Risk Notes Problem Urinary hesitancy (1868051) Urinary hesitancy (R39.11) Active confirmed Vital Signs Blood pressure systolic 122 mm Hg 02/13/20 25 Blood pressure diastolic 74 mm Hg 025 Heart Rate 88 /min 02/12/2025 Height 71.50 in 02/12/2025 Weight 184 lbs 02/12/2025 BMI 25.30 kg/m2 02/12/2025 Encounters Encounter Location Date Provider Diagnosis [place] [address] [place] [phone] 02/12/2025 Marcelino Ortega Pure hypercholestero lemia E78.00 [...] [address], [address] , [place], [place], [phone], Progress Notes * Richard AVILA ADOB:[birth year] (69 yo M)Acc No.[id number]:02/12/2025 Progress Notes Patient: Richard PEREZ Provider: Sudeep Ortega M.D. :1955 A ge:69 Y S ex:Male Date:02/12/2025 Address:[place], [id number] Subjective: * Chief Complaints: * 1 . [...] by Creatinine 91 >59 - mL/min/1.73m2 * Gladys Santiago 02/14/2025 11:19 :27 AM [...] stimated Average Glucose 108 - mg/dL * [facility], IT support 02/13/2025 04:20:10 : This order was created by the Interface. Gladys Santiago 02/14/2025 11:19:27 AM >See phone encounter * Procedure Codes: G 2211 Complex e/[place], [address] GLUCOSE TEST, [address] Urinalysis, no micro, 3044F HG A1C LEVEL LT 7.0%, 3074F SYST BP LT 130 MM HG, 3078F DIAST BP < 80 MM HG * Follow Up: 6 Months * Images: Billing Information: * Visit Code: 43413 Office Visit, Est Pt., Level 4. * Procedure Codes: G2211 Complex e/[place]. [address] GLU[place]SE TEST. 55135 Urinalysis, no micro. 3044F HG A1C LEVEL LT 7.0%. 3074F SYST BP LT 130 MM HG. 3078F DIAST BP < 80 MM HG. * Electronic signature of Sadaf Ortega MD on 08/23/2025 at 02:43 PM EDT Sign off status: Pending * Provider: Sudeep Ortega M.D. Date: 0 02/12/2025 Generated for Kashif mack/Ozzy/Chio on: 1 02:43 PM EDT History and [...]
--- OUTSIDE RECORDS SUMMARY | 2025-05-27 07:45 | XMS_ITS ---
Author Organization [facility] Address [address] [place] [id number] Care Team Providers Care Vocational Rehabilitation Technician Name Role Phone Marcelino Ortega Primary Care Provider [phone] Allergies Allergen (clinical drug ingredient) Drug/Non Drug Allergy documented on EMR Reaction Allergy Type Onset Date Status Penicillin Peeling of skin Drug Allergy Active Results Component Value Reference Range Notes CBC Venipuncture (in house) Reviewed date:05/27/2025 09:18:14 PM Interpretation: Performing Lab: Notes/Report: wbc 6.5 3.5 - 10 lymph 20.8% 15 - 50 mid 5.2% 2 - 15 gran 74.0% 35 - 80 rbc 5.15 3.5 - 5.5 hgb 16.2 11.5 - 16.5 hct 47.6 35 - 55 mcv 92.5 75 - 100 mch 31.4 25 - 35 mchc 34.0 31 - 38 platlet 185 100 - 400 P-Vitamin B12 Reviewed date:06/01/2025 09:41:24 AM Interpretation:Normal Performing Lab: Notes/Report: Test performed by [facility] [address] [place], [place] [address]Smartdate [place] Dony [address] C, [place] [address] Montez Martinez MD, Sheet Fed Printer CLIA: [id number] Vitamin B12 4418 301-9380 pg/mL P-Comprehensive Metabolic Pa marivel (CMP) Reviewed date:06/01/2025 09:41:24 AM Interpretation:Glu 125 Performing Lab: Notes/Report: Test performed by [facility] [address] [place] [address] [place] [address] Montez Martinez MD, Sheet Fed Printer CLIA: [id number] Sodium 143 135-145 mmol/L Potassium 4.0 3.5-5.3 mmol/L Chloride 105 97-108 mmol/L CO2 21 20-32 mmol/L Glucose 125 65-99 mg/dL BUN 10 8-23 mg/dL Creatinine 0.96 0.70-1.30 mg/dL Calcium 9.2 8.6-10.4 mg/dL eGFR by Creatinine 84 >59 mL/min/1.73m2 Protein 6.6 6.0-8.3 g/dL Albumin 4.3 3.5-5.3 g/dL Alkaline Phosphatase 71 40-129 IU/L ALT (SGPT) 15 <5-55 IU/L AST (SGOT) 13 <5-46 IU/L Bilirubin, Total 0.5 <0.2-1.2 mg/dL A/G Ratio 1.9 1.1-2.5 P-TSH reflex to FT4 Reviewed date:06/01/2025 09:41:24 AM Interpretation:Normal Performing Lab: Notes/Report: Test performed by [facility] [address] [place] [address] , [place] [address] Montez Martinez MD, Sheet Fed Printer CLIA: [id number] TSH reflex to FT4 0.96 0.43-5.25 mU/L P-Vitamin D 25-Hydroxy Reviewed date:06/01/2025 09:41:24 AM Interpretation:12.6 Performing Lab: Notes/Report: Test performed by [facility] [address] [place] [address] , [place] [id number] Montez Martinez MD, Sheet Fed Printer CLIA: [id number] Vitamin D 25-Hydroxy 12.6 30.0-100.0 ng/mL Interpretation of Vitamin D 25 OH: < 20 ng/mL - Deficiency 20 - 29 ng/mL - Insufficiency 30 - 100 ng/mL - Sufficiency > 100 ng/mL - Super-therapeutic- toxicity may occur above this level. Clinical correlation required. REASON FOR VISIT dizziness Medications Medication SIG (Take, Route, Frequency, Duration) Notes Start Date End Date Status Meclizine HCl 25 MG 1 tablet as needed O rally every 12 hrs 05/27/2025 Active FLUoxetine HCl 40 MG 1 capsule Orally On ce a day; Duration: 90 days Active Aspirin 81 MG 1 tablet Orally Once a day; Duration: 90 days Active Lansoprazole 30 MG 1 capsule 1/2 to 1 h our before morning meal Orally Once a day Active Silodosin 8 MG 1 capsule with a cristal l Orally Once a day Active ProAir Digihaler 108 (90 Base) MCG/ACT 2 puff(s) inhaled 4 times a day as needed 06/28/2014 Active Lisinopril 5 MG 2 tablets Orally Onc e a day; Duration: 90 days Active Sildenafil Citrate 20 MG 5 tab(s) orally once daily as needed 05/15/2021 Active Fluticasone Propionate 50 MCG/ACT 1 spray(s) intranasally once a day Active Nicotine 21 MG/24HR 1 patch to skin Transdermal Once a day Active Problems Problem Type SNOMED Code ICD Code Onset Dates Problem Status W/U Status Risk Notes Problem Hesitancy of micturition (1738719) Hesitancy of micturition (R39.11) Active confirmed Problem Lower urinary tract symptoms due to benign prostatic hypertrophy (37630807026867) Benign prostatic hyperplasia with lower urinary tract symptoms (N40.1) Active confirmed Vital Signs Blood pressure systolic 130 mm Hg 05/27/20 25 Blood pressure diastolic 72 mm Hg 025 Heart Rate 89 /min 05/27/2025 Height 71.50 in 05/27/2025 Weight 179.2 lbs 05/27/2025 BMI 24.64 kg/m2 05/27/2025 Encounters Encounter Location Date Provider Diagnosis [facility] [address] [place] [id number] 05/27/2025 Marcelino Patterson Intermittent vertigo R42 ; Hesitancy of micturition R39.11 ; Benign prostatic hyperplasia with lower urinary tract symptoms N40.1 ; Fatigue, unspecified type R53.83 ; Hemiplegia and hemiparesis following cerebral infarction affecting right dominant side I69.351 ; Depression with anxiety F41.8 and BMI 24.0-24.9, adult Z68.24 Assessments Encounter Date Diagnosis (ICD Code) Assessment Notes Treatment Notes Treatment Clinical Notes Section Notes 05/27/2025 Intermittent vertigo (ICD-10 - R42) 05/27/2025 Hesitancy of micturition (ICD-10 - R39.11) 05/27/2025 Benign prostatic hyperplasia with lower urinary tract symptoms (ICD-10 - N40.1) 05/27/2025 Fatigue, unspecified type (ICD-10 - R53.83) 05/27/2025 Hemiplegia and hemiparesis following cerebral infarction affecting right dominant side (ICD-10 - I69.351) 05/27/2025 Depression with anxiety (ICD-10 - F41.8) 05/27/2025 BMI 24.0-24.9, adult (ICD-10 - Z68.24) Plan Of Treatment Medication Medication Name Sig Start Date Stop Date Notes Meclizine HCl 25 MG 1 tablet as needed Orally every 12 hrs 05/27/2025 Silodosin 8 MG 1 capsule with a cristal l Orally Once a day Pending Test Test Name Order Date P-Comprehensive Panel, GI by PCR 025 Next Appt Details Follow Up: via phone to repo rt test results, Reason: Provider Name:Marcelino Kc , 09/27/2025 01:45:00 PM, [address], [address], [place], [place], [id number], Progress Notes * Richard AVILA ADOB:[birth year] (69 yo M)Acc No.[id number]:05/27/2025 Progress Notes Patient: Richard PEREZ Provider: Sudeep Ortega M.D. :1955 A ge:69 Y S ex:Male Date:05/27/2025 Address:[address] [place], [place] [id number] Subjective: * Chief Complaints: * 1 . Dizziness. * HPI: N eurology: 69 year old male presents with c/o Dizziness P t complains of off and on dizziness for about a week. Pt states when he lays down he feels like the room is spinning. Pt states he does not have any preesure in ears or and other symptoms. Pt states he has been checking bp when dizziness occurs but bp is normal . * ROS: D ERMATOLOGY: no R marcelino. n o H citlaly. G ASTROENTEROLOGY: no N ausea. n o V omiting. U ROLOGY: no D ifficulty urinating. n o B lood in urine. * Medical History: D epression, Anxiety, COPD, Abnormal PFT's, 03/2012, Esophageal Reflux, Hyperlipidemia, Erectile Dysfunction, Allergic Rhinitis, Chronic Sinusitis, S/P ENT Evaluation, 50 pack year smoking history as of 2018, Colon Polyps, CVA, left basal ganglia, 2024. [...] Sexually active: yes. * Medications: T aking Silodosin 8 MG Capsule 1 capsule with a meal Orally Once a day , Taking Nicotine 21 MG/24HR Patch 24 Hour 1 patch to skin Transdermal Once a day , Taking Fluticasone Propionate 50 MCG/ACT Suspension 1 spray(s) intranasally once a day , Taking Sildenafil Citrate 20 MG Tablet 5 tab(s) orally once daily as needed , Taking Lisinopril 5 MG Tablet 2 tablets Orally Once a day , Taking ProAir Digihaler 108 (90 Base) MCG/ACT Aerosol Powder Breath Activated 2 puff(s) inhaled 4 times a day as needed , Taking Lansoprazole 30 MG Capsule Delayed Release 1 capsule 1/2 to 1 hour before morning meal Orally Once a day , Taking Aspirin 81 MG Tablet Delayed Release 1 tablet Orally Once a day , Taking FLUoxetine HCl 40 MG Capsule 1 capsule Orally Once a day , Medication List reviewed and reconciled with the patient * Allergies: P enicillin: Peeling of skin. Objective: * Vitals: W t: 179.2, Temp: 97.9, BP: 130/72, HR: 89, Nurse: rashad, Ht: 71.50, BMI:24.64. * Examination: G eneral Examination: General Appearance: N AD, using a c ane to assist with ambulation. H EENT: s clera and conjunctiva clear, PERRLA, TM's normal, translucent. H eart: R SR. L ungs: c lear to auscultation. P eripheral pulses: n ormal (2+) bilaterally. E xtremities: n o leg edema. Assessment: * Assessment: 1. I ntermittent vertigo - R42 (Primary) 2 . H esitancy of micturition - R39.11 3 . B enign prostatic hyperplasia with lower urinary tract symptoms - N40.1? 4. F atigue, unspecified type - R53.83 5 . H emiplegia and hemiparesis following cerebral infarction affecting right dominant side - I69.351 6 . D epression with anxiety - F41.8 7 . B MT 24.0-24.9, adult - Z68.24 ? Plan: * Treatment: 2. B enign prostatic hyperplasia with lower urinary tract symptoms Continue Silodosin Capsule, 8 MG, 1 capsule with a meal, Orally, Once a day. 3. F atigue, unspecified type L AB: P-Comprehensive Panel, GI by PCR L AB: P-Vitamin B12 (Collection Date & Time - 05/27/2025 11:30 AM) N ormal Value Reference Range V itamin B12 6769 711-0710 - pg/mL * Delia Sahu 06/01/2025 09: 41:09 AM EDT > See phone encounter ?LAB: P-TSH reflex to FT4 (Collection Date & Time - 05/27/2025 11:30 AM)? Normal* Value Reference Range T SH reflex to FT4 0.96 0.43-5.25 - mU/L * Delia Sahu 06/01/2025 09: 41:09 AM EDT > See phone encounter ?LAB: P-Vitamin D 25-Hydroxy (Collection Date & Time - 05/27/2025 11:30 AM)? 12.6* Value Reference Range V itamin D 25-Hydroxy 12.6 L 30.0-100.0 - ng/mL * Delia Sahu 06/01/2025 09: 41:09 AM EDT > See phone encounter ?LAB: CBC Venipuncture (in house) (Collection Date & Time - 05/27/2025)* Value Reference Range w bc 6.5 3.5 - 10 * l ymph 20.8% 15 - 50 * m id 5.2% 2 - 15 * g ran 74.0% 35 - 80 * r bc 5.15 3.5 - 5.5 * h gb 16.2 11.5 - 16.5 * h ct 47.6 35 - 55 * m cv 92.5 75 - 100 * m ch 31.4 25 - 35 * m chc 34.0 31 - 38 * p latlet 185 100 - 400 * Indigo Valadez 05/27/2025 12:42: 38 PM EDT >Marcelino Ortega 05/27/2025 09:17:48 PM EDT > * Labs: * L ab: P-Comprehensive Metabolic Panel (CMP) (Collection Date & Time - 05/27/2025 11:30 AM) G ignacio 125 Value Reference Range A /G Ratio 1.9 1.1-2.5 - * A lbumin 4.3 3.5-5.3 - g/dL * A lkaline Phosphatase 71 40-129 - IU/L * A LT (SGPT) 15 <5-55 - IU/L * A ST (SGOT) 13 <5-46 - IU/L * B ilirubin, Total 0.5 <0.2-1.2 - mg/dL * B UN 10 8-23 - mg/dL * C alcium 9.2 8.6-10.4 - mg/dL * C hloride 105 97-108 - mmol/L * C O2 21 20-32 - mmol/L * C reatinine 0.96 0.70-1.30 - mg/dL * G lucose 125 H 65-99 - mg/dL * P otassium 4.0 3.5-5.3 - mmol/L * S odium 143 135-145 - mmol/L * P rotein 6.6 6.0-8.3 - g/dL * e GFR by Creatinine 84 >59 - mL/min/1.73m2 * [facility], IT support 05/31/2025 04:05:05 : This order was created by the Interface. Delia Sahu 06/01/2025 09:41:09 AM EDT > See phone encounter * Procedure Codes: G 2211 Complex e/[place], [address] CBC WITH AUTO DIFF, G8420 BMI<30 AND >=22 CALC & DOCU, G8783 BP SCR PRFRM RCMDD DEFIND SCR INTVL, G8752 MOST RECENT SYSTOLIC BP < 140MM HG, G8754 MOST RECENT DIASTOLIC BP < 90MM HG * Follow Up: v ia phone to report test results * Images: Billing Information: * Visit Code: 05422 Office Visit, Est Pt., Level 4. * Procedure Codes: G2211 Complex e/[place]. [address] CBC WITH AUTO DIFF. G8420 BMI<30 AND >=22 CALC & DOCU. G8783 BP SCR PRFRM RCMDD DEFIND SCR INTVL. G8752 MOST RECENT SYSTOLIC BP < 140MM HG. G8754 MOST RECENT DIASTOLIC BP < 90MM HG. * Electronic signature of Sadaf Ortega MD on 08/23/2025 at 02:43 PM EDT Sign off status: Pending * Provider: Sudeep Ortega M.D. Date: 0 05/27/2025 Generated for Kashif mack/Ozzy/Chio on: 1 02:43 PM EDT History and Physical Notes * HPI (History of Present Illness) Category Sub-Category Detail Notes Category Not es Neurology Dizziness Pt complains of off and on dizziness for about a week. Pt states when he lays down he feels like the room is spinning. Pt states he does not have any preesure in ears or and other symptoms. Pt states he has been checking bp when dizziness occurs but bp is normal Examination Category Sub-Category Detail Notes Category Not es General Examination HEENT: sclera and c onjunctiva clear, PERRLA, TM's normal, translucent Heart: RSR Lungs: clear to auscultatio n Extremities: no leg edema General Appearance: NAD, using a cane to assist with ambulation Peripheral pulses: normal (2+) bilatera lly
--- OUTSIDE RECORDS SUMMARY | 2025-05-31 10:15 | XMS_ITS ---
Author Organization [facility] Address [address] [facility] 36 [facility] [address] [place] [id number] Care Team Providers Care Claims Director Name Role Phone Marcelino Ortega Primary Care Provider [phone] REASON FOR VISIT stool sample Encounters Encounter Location Date Provider Diagnosis [facility] 36 [facility] [address] [place] [phone] 05/31/2025 Marcelino Ortega Plan Of Treatment Next Appt Details Provider Name:Marcelino Kc ry, 09/27/2025 01:45:00 PM, [facility] [facility] 36 [facility], [address], [place], [phone], Progress Notes * Richard AVILA ADOB:[birth year] (69 yo M)Acc No.[id number]:05/31/2025 Patient: Richard PEREZ Provider: Sudeep Ortega M.D. :1955 A ge:69 Y S ex:Male Date:05/31/2025 Address:[id number] Subjective: * Chief Complaints: * 1 . Stool sample. * Medical History: Objective: * Vitals: Assessment: Plan: * Treatment: * Images: Billing Information: * Visit Code: * Procedure Codes: * Electronic signature of Sadaf Ortega MD on 08/23/2025 at 02:43 PM EDT Sign off status: Pending * Provider: Sudeep Ortega M.D. Date: 0 05/31/2025 Generated for Kashif mack/Ozzy/Chio on: 1 02:43 PM EDT
--- OUTSIDE RECORDS SUMMARY | 2025-08-16 09:30 | XMS_ITS ---
Author Organization [facility] Address [address] [place] [id number] Care Team Providers Care Windows Server Specialist Name Role Phone Marcelino Ortega Primary Care Provider Allergies Allergen (clinical drug ingredient) Drug/Non Drug Allergy documented on EMR Reaction Allergy Type Onset Date Status Penicillin Peeling of skin Drug Allergy Active Results Component Value Reference Range Notes P-Comprehensive Metabolic Pa marivel (CMP) Reviewed date:08/17/2025 10:20:45 AM Interpretation:Normal Performing Lab: Notes/Report: Test performed by [facility] [address] [place] [address] , [address], [place] [address] Montez Martinez MD, Import/Export Administrator CLIA: [id number] Sodium 143 135-145 mmol/L Potassium 4.3 3.5-5.3 mmol/L Chloride 106 97-108 mmol/L CO2 26 20-32 mmol/L Glucose 95 65-99 mg/dL BUN 11 8-23 mg/dL Creatinine 0.96 0.70-1.30 mg/dL Calcium 9.8 8.6-10.4 mg/dL eGFR by Creatinine 84 >59 mL/min/1.73m2 Protein 6.7 6.0-8.3 g/dL Albumin 4.3 3.5-5.3 g/dL Alkaline Phosphatase 64 40-129 IU/L ALT (SGPT) 11 <5-55 IU/L AST (SGOT) 12 <5-46 IU/L Bilirubin, Total 0.9 <0.2-1.2 mg/dL A/G Ratio 1.8 1.1-2.5 P-Lipid Panel Reviewed date:08/17/2025 10:20:46 AM Interpretation:chol 222, trigs 153, chol/hdl 5.55, non-hdl 182, ldl 151 Performing Lab: Notes/Report: Test performed by [facility] [address] , [address], [place] [address] Montez Martinez MD, Import/Export Administrator CLIA: [id number] Cholesterol 222 <200 mg/dL Triglycerides 153 <150 mg/dL HDL Cholesterol 40 >39 mg/dL Cholesterol / HDL Ratio 5.55 0.00-4.99 Ratio Non-HDL Cholesterol 182 <130 mg/dL LDL Cholesterol (Calculation) 151 <130 mg/dL LDL Cholesterol Levels* Less than [...] Results: 155 Units: mg/dL % Change: +9% Test Date: 08/16/2025 LDL Results: 151 Units: mg/dL % Change: -2% P-Vitamin D 25-Hydroxy Reviewed date:08/17/2025 10:20:46 AM Interpretation:Normal Performing Lab: Notes/Report: Test performed by [facility], [address] , [address], [place] [address] Montez Martinez MD, Import/Export Administrator CLIA: [id number] Vitamin D 25-Hydroxy 73.8 30.0-100.0 ng/mL Interpretation of Vitamin D 25 OH: < 20 ng/mL - Deficiency 20 - 29 ng/mL - Insufficiency 30 - 100 ng/mL - Sufficiency > 100 ng/mL - Super-therapeutic- toxicity may occur above this level. Clinical correlation required. X ray : Spine, lumbosacral Reviewed date:08/17/2025 10:20:46 AM Interpretation:DDD Performing Lab: Notes/Report: DDD Reason For Referral Reason [facility] Diagnosis 1 Right-sided low back pain with right-sided sciatica, unspecified chronicity (M54.41) Referral Organization [facility] Referring Provider First Name Marcelino Referring Provider Last Name Shannon Referring Provider Speciality Family Pra ctice Referred Provider Physical Therapy, . Referred Provider Specialty Physical The rapist General Notes Liss Wade 2024 02:01:07 PM > faxed to [facility] PT Referral Priority Routine REASON FOR VISIT 6 month Medications Medication SIG (Take, Route, Frequency, Duration) Notes Start Date End Date Status Vitamin D3 1.25 MG (25553 UT) 1 capsule Orally weekly 06/01/2025 Acti ve Lansoprazole 30 MG 1 capsule Orally Onc e a day; Duration: 90 days Active Meclizine HCl 25 MG 1 tablet as needed O rally every 12 hrs 05/27/2025 Active Silodosin 8 MG 1 capsule with a cristal l Orally Once a day Active FLUoxetine HCl 40 MG 1 capsule Orally On ce a day; Duration: 90 days Active Lisinopril 5 MG 2 tablets Orally Onc e a day; Duration: 90 days Active ProAir Digihaler 108 (90 Base) MCG/ACT 2 puff(s) inhaled 4 times a day as needed 06/28/2014 Active Fluticasone Propionate 50 MCG/ACT 1 spray(s) intranasally once a day Active Sildenafil Citrate 20 MG 5 tab(s) orally once daily as needed 05/15/2021 Active Aspirin 81 MG 1 tablet Orally Once a day; Duration: 90 days Active Nicotine 21 MG/24HR 1 patch to skin Transdermal Once a day Active Immunizations Vaccine Route Administration Date Status Comme nts Fluzone High Dose (65yr and older) IM Intramuscular 08/16/2025 Administered Problems Problem Type SNOMED Code ICD Code Onset Dates Problem Status W/U Status Risk Notes Problem Sciatica (79841110) Right-sided low back pain with right-sided sciatica, unspecified chronicity (M54.41) Active confirmed Problem Cigarette smoker (29426753) Cigarette smoker (F17.210) Active confirmed Problem Vitamin D deficiency (90369446) Vitamin D deficiency (E55.9) Active confirmed Vital Signs Blood pressure systolic 130 mm Hg 08/16/20 25 Blood pressure diastolic 72 mm Hg 025 Heart Rate 75 /min 08/16/2025 Height 71.50 in 08/16/2025 Weight 181.8 lbs 08/16/2025 BMI 25 kg/m2 08/16/2025 Encounters Encounter Location Date Provider Diagnosis [facility] [address] [place], [place] [id number] 08/16/2025 Marcelino [place] Right-sided low back pain with right-sided sciatica, unspecified chronicity M54.41 ; Cigarette smoker F17.210 ; Pain in mouth K13.79 ; Vitamin D deficiency E55.9 ; Screening for lung cancer Z12.2 ; Personal history of nicotine dependence Z87.891 ; Encounter for immunization Z23 ; retirement use of drug Z79.899 ; Pure hypercholesterolemia E78.00 and BMI 25.0-25.9,adult Z68.25 Assessments Encounter Date Diagnosis (ICD Code) Assessment Notes Treatment Notes Treatment Clinical Notes Section Notes 08/16/2025 Right-sided low back pain with right-sided sciatica, unspecified chronicity (ICD-10 - M54.41) 08/16/2025 Cigarette smoker (IC D-10 - F17.210) Smoking cessation and necessary changes of behavior discussed with patient 08/16/2025 Pain in mouth (ICD-1 0 - K13.79) Patient to follow up with dentist if symptoms persist 08/16/2025 Vitamin D deficiency (ICD-10 - E55.9) 08/16/2025 Screening for lung cancer (ICD-10 - Z12.2) 08/16/2025 Personal history of nicotine dependence (ICD-10 - Z87.891) 08/16/2025 Encounter for immunization (ICD-10 - Z23) 08/16/2025 retirement use of liane g (ICD-10 - Z79.899) 08/16/2025 Pure hypercholesterolemia (ICD-10 - E78.00) 08/16/2025 BMI 25.0-25.9,adult (ICD-10 - Z68.25) Plan Of Treatment Treatment Notes Assessment Notes Cigarette smoker Smoking cessation an d necessary changes of behavior discussed with patient Pain in mouth Patient to follow up with dentist if symptoms persist Pending Test Test Name Order Date CT Scan : Chest, low dose 08/16/2025 Referrals Referral Date Details 08/16/2025 08/16/2025, [facility], . P hysical Therapy Next Appt Details Follow Up: 6 Weeks, Reason: Provider Name:Marcelino Kc ry, 09/27/2025 01:45:00 PM, [address] [facility], [address], [place], [place], [id number], Progress Notes * Richard AVILA ADOB:[birth year] (69 yo M)Acc No.[id number]:08/16/2025 Progress Notes Patient: Vern ADE Richard Tenorio Provider: Sudeep Ortega M.D. :1955 A ge:69 Y S ex:Male Date:08/16/2025 Address:[place], [id number] Subjective: * Chief Complaints: * 1 . 6 month. * HPI: C ardiology: 69 year old male presents with c/o Blood Pressure Elevated P t here for 6 month follow up on Hypertension. c/o Hyperlipidemia P t is not fasting today. L ower back: c/o Low Back Pain P t states this has been going on for several weeks. Pt states it is like a dull pain. H PI: c/o Patient is here today for P t complains of pain when chewing on left side of mouth. * Medical History: D epression, Anxiety, COPD, Abnormal PFT's, 03/2012, Esophageal Reflux, Hyperlipidemia, Erectile Dysfunction, Allergic Rhinitis, Chronic Sinusitis, S/P ENT Evaluation, 50 pack year smoking history as of 2018, Colon Polyps, CVA, left basal ganglia, 2024. * Surgical History: T onsilectomy 2010, Colonoscopy 2018. * Hospitalization/Major Diagno stic Procedure: P juan manuel 2004. * Family History: F ather: . M other: alive. 2 brother(s) - healthy. 2 son(s) - healthy. . * Social History: C URRENT TOBACCO USE: Yes S moking Status: Patient does smoke, packs [...] times a day as needed , Taking Aspirin 81 MG Tablet Delayed Release 1 tablet Orally Once a day , Taking FLUoxetine HCl 40 MG Capsule 1 capsule Orally Once a day , Taking Meclizine HCl 25 MG Tablet 1 tablet as needed Orally every 12 hrs , Taking Silodosin 8 MG Capsule 1 capsule with a meal Orally Once a day , Taking Vitamin D3 1.25 MG (65653 UT) Capsule 1 capsule Orally weekly , Taking Lansoprazole 30 MG Capsule Delayed Release 1 capsule Orally Once a day , Medication List reviewed and reconciled with the patient * Allergies: P enicillin: Peeling of skin. Objective: * Vitals: W t: 181.8, Temp: 98.3, BP: 130/72, HR: 75, Nurse: SF, Ht: 71.50, BMI:25. * Examination: G eneral Examination: General Appearance: N AD. O ral cavity: n o lesions, mucosa moist and WNL, no erythema. H eart: R SR. L ungs: c lear to auscultation.?Peripheral pulses: n ormal (2+) bilaterally. B ack: n o CVA tenderness. E xtremities: n o leg edema. Assessment: * Assessment: 1. R ight-sided low back pain with right-sided sciatica, unspecified chronicity - M54.41 (Primary) 2 . C igarette smoker - F17.210 3 . P ain in mouth - K13.79 4 . V itamin D deficiency - E55.9 5 . S creening for lung cancer - Z12.2 6 . P ersonal history of nicotine dependence - Z87.891 ? 7 . E ncounter for immunization - Z23 8 . L graham term use of drug - Z79.899 9 . P ure hypercholesterolemia - E78.00 1 0. B OK 25.0-25.9,adult - Z68.25 Plan: * Treatment: ? Referral To:. Physical Therapy??Physical Therapist ?Reason:[facility] 2.?Cigarette smoker? Notes: Smoking cessation and necessary changes of behavior discussed with patient??3.?Pain in mouth? Notes: Patient to follow up with dentist if symptoms persist??4.?Vitamin D deficiency?LAB: P-Vitamin D 25-Hydroxy (Collection Date & Time - 08/16/2025 01:01 PM)? Normal* Value Reference Range V itamin D 25-Hydroxy 73.8 30.0-100.0 - ng/mL * Delia Sahu 08/17/2025 10: 20:39 AM EDT > See phone encounter 5.?Screening for lung cancer?Imaging: CT Scan : Chest, low dose* Afternoon appt.Sheri Liss 08/16/2025 02:03:47 PM EDT > no auth required; CPT code 48455; faxed to [facility] Scheduling 6.?Personal history of nicotine dependence?Imaging: CT Scan : Chest, low dose* Afternoon appt.SheriLiss 08/16/2025 02:03:47 PM EDT > no auth required; CPT code 69515; faxed to [facility] Scheduling 7.?Pure hypercholesterolemia?LAB: P-Comprehensive Metabolic Panel (CMP) (Collection Date & Time - 08/16/2025 01:01 PM)?Normal* Value Reference Range A /G Ratio 1.8 1.1-2.5 - * A lbumin 4.3 3.5-5.3 - g/dL * A lkaline Phosphatase 64 40-129 - IU/L * A LT (SGPT) 11 <5-55 - IU/L * A ST (SGOT) 12 <5-46 - IU/L * B ilirubin, Total 0.9 <0.2-1.2 - mg/dL * B UN 11 8-23 - mg/dL * C alcium 9.8 8.6-10.4 - mg/dL * C hloride 106 97-108 - mmol/L * C O2 26 20-32 - mmol/L * C reatinine 0.96 0.70-1.30 - mg/dL * G lucose 95 65-99 - mg/dL * P otassium 4.3 3.5-5.3 - mmol/L * S odium 143 135-145 - mmol/L * P rotein 6.7 6.0-8.3 - g/dL * e GFR by Creatinine 84 >59 - mL/min/1.73m2 * Delia Sahu 08/17/2025 10: 20:39 AM EDT > See phone encounter ?LAB: P-Lipid Panel (Collection Date & Time - 08/16/2025 01:01 PM)?chol 222, trigs 153, chol/hdl 5.55, non-hdl 182, ldl 151* Value Reference Range C holesterol / HDL Ratio 5.55 H 0.00-4.99 - Ratio * C holesterol 222 H <200 - mg/dL * H DL Cholesterol 40 >39 - mg/dL * L DL Cholesterol (Calculation) 151 H <130 - mg/d L * L DL/HDL Ratio 3.8 H <3.3 - Ratio * N on-HDL Cholesterol 182 H <130 - mg/dL * T riglycerides 153 H <150 - mg/dL * Delia Sahu 08/17/2025 10: 20:39 AM EDT > See phone encounter * Immunizations: Fluzone High Dose (65yr and older) : 0.5 mL (Route: Intramuscular) given by Indigo Valadez on Right Deltoid (Encounter for immunization) * Procedure Codes: G 2211 Complex e/m visit add on, G8420 BMI<30 AND >=22 CALC & DOCU, G8783 BP SCR PRFRM RCMDD DEFIND SCR INTVL, G8752 MOST RECENT SYSTOLIC BP < 140MM HG, G8754 MOST RECENT DIASTOLIC BP < 90MM HG, 3075F SYST BP GE 130 - 139MM HG, 3078F DIAST BP < 80 MM HG * Follow Up: 6 Weeks * Images: Billing Information: * Visit Code: 64393 Office Visit, Est Pt., Level 4. * Procedure Codes: G2211 Complex e/m visit add on. G8420 BMI<30 AND >=22 CALC & DOCU. G8783 BP SCR PRFRM RCMDD DEFIND SCR INTVL. G8752 MOST RECENT SYSTOLIC BP < 140MM HG. G8754 MOST RECENT DIASTOLIC BP < 90MM HG. 3075F SYST BP GE 130 - 139MM HG. 3078F DIAST BP < 80 MM HG. * Electronic signature of Sadaf Ortega MD on 08/23/2025 at 02:42 PM EDT Sign off status: Pending * Provider: Sudeep Ortega M.D. Date: 0 08/16/2025 Generated for Kashif ng/Ozzy/eTransmitting on: 1 02:42 PM EDT History and Physical Notes * HPI (History of Present Illness) Category Sub-Category Detail Notes Category Not es Cardiology Blood Pressure Elevated Pt here for 6 month follow up on Hypertension Hyperlipidemia Pt is not fasting to day Lower back Low Back Pain Pt states this h as been going on for several weeks. Pt states it is like a dull pain HPI Patient is here today for Pt com [place] of pain when chewing on left side of mouth Examination Category Sub-Category Detail Notes Category Not es General Examination Heart: RSR Lungs: clear to auscultatio n Extremities: no leg edema General Appearance: NAD Oral cavity: no lesions, mucosa m oist and WNL, no erythema Peripheral pulses: normal (2+) bilatera lly Back: no CVA tenderness Consultation Request Notes Referral Date Referring Provider Referred Provider Not es 08/16/2025 Marcelino Ortega Physical Therapy, . [facility]
--- NOTE | 2025-08-23 14:43 | CT_ITS ---
FINAL REPORT TECHNIQUE: Thin section axial images were obtained through the lungs using a low-dose technique per lung cancer screening protocol. Reconstruction images were obtained using the axial data. This study was performed with techniques to keep radiation doses as low as reasonably achievable, (ALARA). Individualized dose reduction techniques using automated exposure control or adjustment of mA and/or kV according to the patient's size were employed. CLINICAL HISTORY: HX OF TOBACCO. smoker 1ppd for 55 years. copd COMPARISON: 08/21/2024 FINDINGS: CTDLvol: 2.90 DLP: 109.94 Current smoker 55 pack year history Lungs: There is emphysema and evidence of prior granulomatous disease. The lungs are otherwise clear. No suspicious nodules. Lymph nodes: No thoracic lymphadenopathy. Mediastinum: Heart size is normal. Pleura/pericardium: No pleural or pericardial effusion. There are prominent coronary artery calcifications. Other: In the upper abdomen, there are multiple hypodense liver lesions which appear stable. There is no acute abnormality in the upper abdomen. IMPRESSION: No suspicious pulmonary nodule or mass. Prominent coronary artery calcifications. Lung RADS: 1S Recommendation: 12-month follow-up low-dose chest CT. Modifier S: Coronary artery calcifications. Reviewed, Interpreted and Dictated by Jewels Robert MD Transcribed by Lily Jimenez Authenticated and [facility]
--- OUTSIDE RECORDS SUMMARY | 2025-08-23 14:43 | XMS_ITS | Patient Health Record ---
Author Organization [facility] Address [address] [place] [id number] Care Team Providers Care Db2 Developer Name Role Phone Marcelino Ortega Primary Care Provider Allergies Allergen (clinical drug ingredient) Drug/Non Drug Allergy documented on EMR Reaction Allergy Type Onset Date Status Penicillin Peeling of skin Drug Allergy Active Results Component Value Reference Range Notes P-Comprehensive Metabolic Pa marivel (CMP) Reviewed date:08/17/2025 10:20:45 AM Interpretation:Normal Performing Lab: Notes/Report: Test performed by [facility] [address] [place] [address] , [address], [place] [address] Montez Martinez MD, Intramural Director CLIA: [id number] Sodium 143 135-145 mmol/L Potassium 4.3 3.5-5.3 [...] 151 Performing Lab: Notes/Report: Test performed by [facility] [address] [place] [address] , [address], [place] [address] Montez Martinez MD, Intramural Director CLIA: [id number] Cholesterol 222 <200 mg/dL Triglycerides 153 <150 [...] Interpretation:Normal Performing Lab: Notes/Report: Test performed by [facility] [address] [place] [address] , [place] , [place] [address] Montez Martinez MD, Intramural Director CLIA: [id number] Vitamin D 25-Hydroxy 73.8 30.0-100.0 ng/mL Interpretation of Vitamin D 25 OH: < 20 ng/mL - Deficiency 20 - 29 ng/mL - Insufficiency 30 - 100 ng/mL - Sufficiency > 100 ng/mL - Super-therapeutic- toxicity may occur above this level. Clinical correlation required. X ray : Spine, lumbosacral Reviewed date:08/17/2025 10:20:46 AM Interpretation:DDD Performing Lab: Notes/Report: DDD P-Comprehensive Metabolic Pa marivel (CMP) Reviewed date:06/01/2025 09:41:24 AM Interpretation:Glu 125 Performing Lab: Notes/Report: Test performed by [facility] [address] [place], [place] [address]Quintic Valier [address], [place] [address] Montez Martinez MD, Intramural Director CLIA: [id number] Sodium 143 135-145 mmol/L Potassium 4.0 3.5-5.3 [...] <0.2-1.2 mg/dL A/G Ratio 1.9 1.1-2.5 P-Vitamin D 25-Hydroxy Reviewed date:06/01/2025 09:41:24 AM Interpretation:12.6 Performing Lab: Notes/Report: Test performed by [facility] [address] [place] [address] , [address], [place] [address] Montez Martinez MD, Intramural Director CLIA: [id number] Vitamin D 25-Hydroxy 12.6 30.0-100.0 ng/mL Interpretation of Vitamin D 25 OH: < 20 ng/mL - Deficiency 20 - 29 ng/mL - Insufficiency 30 - 100 ng/mL - Sufficiency > 100 ng/mL - Super-therapeutic- toxicity may occur above this level. Clinical correlation required. P-TSH reflex to FT4 Reviewed date:06/01/2025 09:41:24 AM Interpretation:Normal Performing Lab: Notes/Report: Test performed by [facility] [address] [place] [address] , [address], [place] [address] Montez Martinez MD, Intramural Director CLIA: [id number] TSH reflex to FT4 0.96 0.43-5.25 mU/L P-Vitamin B12 Reviewed date:06/01/2025 09:41:24 AM Interpretation:Normal Performing Lab: Notes/Report: Test performed by [facility] [address] [place] [address] , [address], [place] [address] Montez Martinez MD, Intramural Director CLIA: [id number] Vitamin B12 4983 534-7220 pg/mL CBC Venipuncture (in house) Reviewed date:05/27/2025 [...] - 38 platlet 185 100 - 400 Estimated Average Glucose Reviewed date:02/14/2025 11:19:38 AM Interpretation: Normal Performing Lab: Notes/Report: Test performed by [facility] [address] [place] [address] , [place] [address] Montez Martniez MD, Intramural Director CLIA: [id number] Estimated Average Glucose (eAG) 108 Estimated Average [...] Normal Performing Lab: Notes/Report: Test performed by [facility] [address] [place] [address] , [place] [address] Montez Martinez MD, Intramural Director CLIA: [id number] TSH reflex to FT4 1.31 0.43-5.25 mU/L P-Lipid Panel Reviewed date:02/14/2025 11:19:38 AM Interpretation:chol 221, chol/hdl 5.39, non-hdl 180, ldl 155, ldl/hdl 3.8 Performing Lab: Notes/Report: Test performed by [facility] [address] [place] [address] , [address], [place] [address] Montez Martinez MD, Intramural Director CLIA: [id number] Cholesterol 221 <200 mg/dL Triglycerides 124 <150 [...] Normal Performing Lab: Notes/Report: Test performed by [facility], [address] [facility], [place] [address] Montez Martinez MD, Intramural Director CLIA: [id number] Hemoglobin A1C 5.4 <5.7 % The following HbA1c ranges recommended by the [place] [employer] (ADA) may be used as an aid in the diagnosis of diabetes mellitus. HbA1c Suggested Diagnosis >=6.5% Diabetic 5.7% - 6.4% Pre-Diabetic <5.7% Non-Diabetic P-Comprehensive Metabolic Pa marivel (CMP) Reviewed date:02/14/2025 11:19:38 AM Interpretation: Normal Performing Lab: Notes/Report: Test performed by [facility] [place] [address] , [address], [place] [address] Montez Martinez MD, Intramural Director CLIA: [id number] Sodium 140 135-145 mmol/L Potassium 4.7 3.5-5.3 [...] Sp. Gr. 1.020 Ketone Neg Bili Neg CBC Fingerstick (in house) Reviewed date:11/27/2024 12:44:27 [...] - 38 plat 175 100 - 400 Echocardiogram Reviewed date:12/10/2024 09:04:14 AM Interpretation:Normal Performing Lab: Notes/Report: Normal Reason For Referral Reason [facility] navig ators Diagnosis 1 Ataxia (R27.0) Diagnosis 2 Right sided weakness (R53.1) Diagnosis 3 Left basal ganglia e mbolic stroke (I63.9) Referral Organization [facility] Referring Provider First Name Marcelino Referring Provider Last Name Shannon Referring Provider [facility] Referred Provider [facility], . Referred Provider Specialty [facility] Agency General Notes Gladys Santiago 11/27/19 1:17:10 PM > referral faxed to [facility]inder Shannon 12/01/2024 10:08:08 AM > [facility] called and said [facility] is closest to them for Home Therapy, unlimited home visits for 28hrs per week. Medical Equipment and supplies included. Fax order to [phone] the provider number is . Jack Julia 12/01/2024 1:25:14 PM > Referral faxed to [facility].Jack Julia 12/01/2024 4:46:45 PM > Referral refaxedJack Julia 12/02/2024 9:54:31 AM > Referral faxed to [facility] to see if the are able to provide care in [facility] Jack VIDAL Julia 12/03/2024 3:18:10 PM > Referrral faxed to [facility] Referral Priority Routine Reason patient needs pulmon [facility] Diagnosis 1 Right sided weakness (R53.1) Diagnosis 2 Acute stroke of basa l ganglia (I63.9) Referral Organization [facility] Referring Provider First Name Marcelino Referring Provider Last Name Shannon Referring Provider [facility] General Notes Liss Wade 2024 01:49:02 PM > faxed to pulmonary rehab Referral Priority Routine Diagnosis 1 Microscopic hematuri a (R31.29) Diagnosis 2 Polyuria (R35.89) Diagnosis 3 Urinary hesitancy (R 39.11) Referral Organization [facility] Referring Provider First Name Marcelino Referring Provider Last Name Shannon [facility] Referred Provider Thierry Copeland Referred Provider Specialty Urology General Notes Liss Wade 02/16/20 1:52:28 PM > faxed to Dr. Copeland's office Referral Priority Routine Reason [facility] Diagnosis 1 Right-sided low back pain with right-sided sciatica, unspecified chronicity (M54.41) Referral Organization [facility] Referring Provider First Name Marcelino Referring Provider Last Name Shannon Referring Provider [facility] ctice Referred Provider Physical Therapy, . Referred Provider Specialty Physical The rapist General Notes Liss Wade 2024 02:01:07 PM > faxed to [facility] PT Referral Priority Routine Medications Medication SIG (Take, Route, Frequency, Duration) Notes Start Date End Date Status Lisinopril 5 MG 2 tablets Orally Onc e a day; Duration: 90 days Active Fluticasone Propionate 50 MCG/ACT Use 1 spray(s) in each nostril once daily; Duration: 60 Active Ezetimibe 10 MG 1 tablet Orally Once a day; Duration: 90 days 08/20/2025 Active Nicotine 21 MG/24HR 1 patch to skin Transdermal Once a day Active Albuterol Sulfate HFA 108 (90 Base) MCG/ACT INHALE 2 PUFFS BY MOUTH 4 TIMES DAILY NEEDED; Duration: 90 Active Vitamin D3 1.25 MG (89613 UT) 1 capsule Orally weekly 06/01/2025 Acti [...] Once a day; Duration: 90 days Active Sildenafil Citrate 20 MG 5 tab(s) orally once daily as needed Active FLUoxetine HCl 40 MG 1 capsule [...] Status Risk Notes Problem Vitamin D deficiency (80982401) Vitamin D deficiency (E55.9) Active confirmed Problem Mixed anxiety and depressive disorder (845469892) Depression with anxiety (F41.8) Active confirmed Problem Acute exacerbation o f chronic obstructive airways disease (552509421) COPD exacerbation (J44.1) Active confirmed Problem Hemiplegia of dominant side as late effect of cerebrovascular disease (545871267) 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) Active confirmed Problem Chronic maxillary sinusitis (22469117) Chronic maxillary sinusitis (J32.0) Active confirmed Problem Hesitancy of micturition (7202968) Hesitancy of micturition (R39.11) Active confirmed Problem History of polyp of colon (situation) (394294011) History of colon polyps (Z86.010) Active confirmed Problem Urinary hesitancy (9522796) Urinary hesitancy (R39.11) Active confirmed Problem COPD - Chronic obstructive pulmonary disease (12603400) Chronic obstructive pulmonary disease, unspecified COPD type (J44.9) Active confirmed Problem Gastroesophageal reflux disease (877716514) Gastroesophageal reflux disease, esophagitis presence not specified (K21.9) Active confirmed Problem Erectile dysfunction (disorder) (506116108) Erectile dysfunction, unspecified erectile dysfunction type (N52.9) Active confirmed Problem Cerebral infarction (506186019) Acute CVA (cerebrovascular accident) (I63.9) Active confirmed Problem Cigarette smoker (33272574) Cigarette smoker (F17.210) Active confirmed Problem Impaired fasting glycaemia (760534256) IFG (impaired fasting glucose) (R73.01) Active confirmed Problem Allergic rhinitis (58773505) Allergic rhinitis, unspecified allergic rhinitis trigger, unspecified rhinitis seasonality (J30.9) Active confirmed Problem Pure hypercholesterolemia (494726870) Pure hypercholesterolemia (E78.00) Active confirmed Problem Lower urinary tract symptoms due to benign prostatic hypertrophy (06940297901060) Benign prostatic hyperplasia with lower urinary tract symptoms (N40.1) Active confirmed Problem Sciatica (86465536) Right-sided low back pain with right-sided sciatica, unspecified chronicity (M54.41) Active confirmed Problem Hearing loss (14228434) Hearing loss of left ear, unspecified hearing loss type (H91.92) Active confirmed Problem Gastroesophageal reflux disease (377429739) Gastroesophageal reflux disease, unspecified whether esophagitis present (K21.9) Active confirmed Problem Cerebral infarction (881146240) Left basal ganglia embolic stroke (I63.9) Active confirmed Vital Signs Heart Rate 75 /min 08/16/2025 Blood pressure diastolic 72 mm Hg 08/16/2025 Height 71.50 in 08/16/2025 Blood pressure systolic 130 mm Hg 08/16/2025 Weight 181.8 lbs 08/16/2025 BMI 25 kg/m2 08/16/2025 Encounters Encounter Location Date Provider Diagnosis [facility] [address] [place] [id number] 11/27/2024 Marcelino [place] Left basal ganglia e mbolic stroke I63.9 ; Right sided weakness R53.1 ; Ataxia R27.0 ; Acute diarrhea R19.7 ; Excessive wax in right ear H61.21 and Chronic obstructive pulmonary disease, unspecified COPD type J44.9 [facility] [address] [place] [id number] 12/25/2024 Marcelino [place] Right sided weakness R53.1 and Acute stroke of basal ganglia I63.9 [facility] [address] [place] [id number] 02/12/2025 Marcelino [place] Pure hypercholestero lemia E78.00 ; IFG (impaired fasting glucose) R73.01 ; Gastroesophageal reflux disease, unspecified whether esophagitis present K21.9 ; Chronic obstructive pulmonary disease, unspecified COPD type J44.9 ; Depression with anxiety F41.8 ; Polyuria R35.89 ; Prostate cancer screening Z12.5 and Microscopic hematuria R31.29 [facility] [address] [facility] [address] [place], [place] [id number] 05/27/2025 Marcelino [place] Intermittent vertigo R42 ; Hesitancy of micturition R39.11 ; Benign prostatic hyperplasia with lower urinary tract symptoms N40.1 ; Fatigue, unspecified type R53.83 ; Hemiplegia and hemiparesis following cerebral infarction affecting right dominant side I69.351 ; Depression with anxiety F41.8 and BMI 24.0-24.9, adult Z68.24 [facility] [address] [facility] [address] [place] [id number] 05/31/2025 Marcelino [place] [facility] [address] 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 [address] [place] [id number] 08/24/2024 Marcelino [place] [facility] [address] [facility] [address] [place] [id number] 11/24/2024 Marcelino [place] Acute CVA (cerebrova scular accident) I63.9 [facility] [address] [facility] [address] [place] [id number] 11/24/2024 Marcelino [place] [facility] [address] [facility] [address] [place] [id number] 11/27/2024 Marcelino [place] [facility] [address] [facility] [address] [place] [id number] 12/08/2024 Marcelino [place] Pure hypercholestero lemia E78.00 [facility] [address] [facility] [address] [place] [id number] 12/09/2024 Marcelino [place] [facility] [address] [place] [id number] 12/11/2024 Marcelino [place] [facility] [address] [place] [id number] 12/15/2024 Marcelino [place] Hemiplegia and hemip aresis following cerebral infarction affecting right dominant side I69.351 [facility] [address] [place] [id number] 12/21/2024 Marcelino [place] [facility] [address] [place] [id number] 12/22/2024 Marcelino [place] [facility] [address] [place] [id number] 02/03/2025 Marcelino [place] [facility] [address] [place] [id number] 02/14/2025 Marcelino [place] [facility] [address] [place] [id number] 02/15/2025 Marcelino [place] [facility] [address] [place] [id number] 05/03/2025 Marcelino [place] Acute stroke of basa l ganglia I63.9 [facility] [address] [place] [id number] 06/01/2025 Marcelino [place] [facility] [address] [place] [id number] 06/14/2025 Marcelino [place] [facility] [address] [place] [id number] 08/17/2025 Marcelino [place] Assessments Encounter Date Diagnosis (ICD Code) Assessment Notes Treatment Notes Treatment Clinical Notes Section Notes 11/24/2024 Acute CVA (cerebrovascular accident) (ICD-10 - [...] R42) 08/16/2025 Cigarette smoker (ICD-10 - F17.210) Smoking cessation and necessary changes of behavior discussed with patient 08/16/2025 Right-sided low back pain with right-sided sciatica, unspecified chronicity (ICD-10 - M54.41) 08/16/2025 Pain in mouth (ICD-1 0 - K13.79) Patient to follow up with dentist if symptoms persist 05/27/2025 Benign prostatic hyperplasia with lower urinary tract symptoms (ICD-10 - N40.1) 02/12/2025 Gastroesophageal ref lux disease, unspecified whether esophagitis present (ICD-10 - K21.9) 11/27/2024 Ataxia (ICD-10 - R27.0) 11/27/2024 Acute diarrhea (ICD- 10 - R19.7) [...] Microscopic hematuri a (ICD-10 - R31.29) 08/16/2025 [facility] use of liane g (ICD-10 - Z79.899) 08/16/2025 Pure hypercholesterolemia (ICD-10 - E78.00) 08/16/2025 BMI 25.0-25.9,adult (ICD-10 - Z68.25) 11/27/2024 Other Discharge summary with available lab/diagnostic imaging results obtained and reviewed. Discharge medication list reconciled. Appropriate counseling provided. Moderate Complexity Plan Of Treatment Pending Test Test Name Order Date CT Scan : Chest, low dose 08/16/2025 P-PSA 08/12/2023 P-Comprehensive Panel, GI by PCR 025 Next Appt Details Provider Name:Marcelino Kc ry, 09/27/2025 01:45:00 PM, [address], [place], [place], [id number], Insurance Providers Payer Name Payer Address Payer Phone Subscriber Number Group Number Insured Name Patient Relationship to Insured Coverage Start Date Coverage End Date [employer] (MEDICARE) [address] [address] [place] [address] [phone] [id number] Copp[employer] Richard Self - patient is the insured MEDICARE PART B [address] [address] [place] [address] [id number] CoppaRichard tracy Self - patient is the insured Medical [...]
== END 2025-08-23 23:59 | disposition home or self-care (01) ==
LOC: RAD 14:42
PROVIDERS: PCP Family Medicine; Visit Provider Family Medicine
DX: Z12.2 Encounter for screening for malignant neoplasm of respiratory organs (principal); F17.210 Nicotine dependence, cigarettes, uncomplicated; J43.9 Emphysema, unspecified; I25.10 Atherosclerotic heart disease of native coronary artery without angina pectoris; K76.9 Liver disease, unspecified
CPT/HCPCS: 71271

== ENCOUNTER 2025-09-16 14:00 | Outpatient (RCR) | payer MEDICARE, SELFPAY ==
--- NOTE | 2025-09-16 16:57 | [facility].RHREAS ---
Rehab Reassessment Rehab OP Re-assessment Start: 08/31/25 14:03 Freq: Status: Active Protocol: Document 09/16/25 14:23 CHARU (Rec: 09/16/25 16:56 CHARU [id number]) E-signed By Niya Riggs, PT Oswestry Index Section 1 Pain Intensity The pain comes and goes and is severe Section 2 Personal Care ( increase the pain, but I manage not to change my way of Washing,[place]) doing it Section 3 Lifting I can only lift very light weights at most Section 4 Walking I cannot walk more than 1/4 mile without increasing pain Section 5 Sitting I can sit in my favorite chair for as long as I like Section 6 Standing I have some pain on standing, but it does not increase with time Section 7 Sleeping I get pain in bed, but it does not prevent me from sleeping well Section 8 Social Life My social life is normal but increases the degree of pain Section 9 Traveling I get some pain when traveling, but none of my usual forms of travel m Section 10 Changing Degreee of My pain fluctuates, but overall is definitely getting Pain better Score and Risk Level Oswestry Score 21 Oswestry Risk Level Moderate Disability Rehab Re-assessment Subjective Subjective Pt reports he feels 50% improved since starting PT. Pt reports low back pain is now intermittent in nature instead of constant, states it abolished with rest. Pt reports continued intermittent R>L radiating pain to the right calf region, denies numbness/tingling or b/b dysfunction. Pt reports pain at worst as 7/10 and on average 2-3/10 on VAS. Pt reports pain continues to be aggravated by prolonged standing and walking. Pt reports compliance with HEP with good tolerance. Objective Objective Notes Palpation: 0-1/4 TTP of R lumbar PS, piriformis, L3-S1 Lumbar AROM: flex 55, ext 10, LF 10 Assessment Progress Assessment Progressing as Expected Assessment Notes Pt has attended 5 PT treatment sessions since the initial evaluation consisting of aerobic exercise, lumbar mobility, flexion based program, LE stretching/ strengthening, neural glides and HEP with good tolerance. Pt demonstrated improved subjective report of pain, tenderness to palpation ESTER score and flexion AROM this date compared to the initial evaluation. Pt continues to report moderate-severe low back pain with radiating pain exacerbated by standing and walking. Pt would continue to benefit from skilled PT to further improve subjective report of pain, lumbar AROM, strength, and functional activity tolerance to improve overall QOL/function. PT Patient Goals PT Short Term 3 weeks: Patient Goals 1. Verbalize compliance with HEP to assist with overall progress. -MET 2. Improve lumbar flexion AROM to 60 to assist with function and mobility. 3. Improve pain at worst to 6/10 on VAS to improve overall QOL/function. -NOT MET PT [facility] Patient 6 weeks: Goals 1. Improve tenderness to palpation of lumbar spine to 0 -1/4 to assist with pain. 2. Improve lumbar AROM flex to 70, ext & LF to 15 to assist with mobility and function. 3. Improve RLE MMT to 4+/5 grossly to assist with function. 4. Demonstrate improved gait mechanics either with or without orthotics to decrease fall risk. 5. Improve pain at worst to 4/10 on VAS to improve overall QOL/function. 6. Improve ESTER score to 18 or less to improve overall QOL/function. Plan Plan Continue initial POC Frequency of Therapy 2x/week Duration of Therapy 4 more weeks Therapeutic Exercise Yes Including Home Exercise Program Manual Therapy Yes Techniques Neuromuscular Re- Yes education Therapeutic Yes Activities to Return to Previous Functional/Work Level ADL/Self Care Yes Education Mechanical Traction Yes Dry Needling Yes Thermal Modalities Yes Electrical Yes Stimulation Ultrasound/ Yes Phonophoresis Iontophoresis Yes Massage Yes Group Therapy for Yes Medicare Eval/Re-Eval Yes Time and Billing Re-Eval Time 10 Re-Eval Billing 0 Units Charge for PT No reassessment? Charge for OT No reassessment? PHYSICIAN CERTIFICATION: I certify the specified therapy services for Richard Avila are required, authorized, and reviewed every 30 days.
== END 2025-09-16 23:59 | disposition home or self-care (01) ==
LOC: PT 14:00
PROVIDERS: Visit Provider Family Medicine
DX: M54.41 Lumbago with sciatica, right side (principal)
CPT/HCPCS: 97110; 97530